=== PATIENT | male | born 1970 ===

== ENCOUNTER 2019-05-19 16:11 | Inpatient (IN) ==
[2019-05-19] MEDS ORDERED: 0.9 % Sodium Chloride 1,000 ML IVC ONE (16:39)
[2019-05-19] MEDS ORDERED: Morphine Sulfate 2 MG/ML SYRINGE IVP ONE (16:39)
--- NOTE | 2019-05-19 16:39 | Emergency Department Note ---
Disposition Clinical Impression: Infected hand Disposition: Admitted As Inpatient Condition: Fair Time of Disposition: 18:22 Extremity Problem HPI - General Chief complaint: ED Extremity Problem,Nontraumatic Stated complaint: Left hand infection, Failed otpt abx Time Seen by Provider: 05/19/19 16:27 Source: patient Limitations: no limitations Nursing Notes Reviewed: Yes Vital Signs Reviewed: Yes - History of Present Illness HPI Narrative: 48-year-old male presents emergency department with concern for left hand swelling. Patient jabbed it with a screwdriver. Reports that this is over 1 month ago. He stated that he is treated outpatient for infection. Things are worse now there is drainage coming out of his hand. Just some redness that is popped up as well. Patient denies any fevers, chills. He states he is up-to-date on his tetanus shot. He is able to move his hand throughout. He just concern is more swollen and red with the drainage. Pain Scale: 7 - Related Data Home Medications Medication Instructions Recorded Confirmed Albuterol Sulfate [Proventil 2 puff IH Q4HR PRN 05/19/19 05/19/19 Inhaler] Levothyroxine [Synthroid] 25 mcg PO 0630 05/19/19 05/19/19 Mometasone/Formoterol [Dulera 100 2 inh IH BID 05/19/19 05/19/19 Mcg/5 Mcg Inhaler] Tiotropium [Spiriva] 18 mcg IH 0700 05/19/19 05/19/19 hydroCHLOROthiazide 25 mg PO DAILY 05/19/19 05/19/19 [Hydrochlorothiazide] Previous Rx's Medication Instructions Recorded Clindamycin HCl 600 mg PO TID 8 Days #48 capsule 05/25/19 HYDROcodone/Acet 5/325 mg [[place] 1 tab PO Q6H PRN 3 Days #12 tab 05/25/19 5-325 mg] Lactobacillus [Culturelle] 1 each PO BID #14 cap.sprink 05/25/19 Sulfamethoxazole/Trimeth DS 1 each PO BID 8 Days #16 tablet 05/25/19 [Bactrim DS] Allergies Allergy/AdvReac Type Severity Reaction Status Date / Time steroids Allergy Rash Uncoded 09/06/18 17:27 All systems ED: reviewed and negative except as stated. Review of Systems: As Per HPI Constitutional: Denies: fever Cardiovascular: Denies: chest pain Respiratory: Denies: cough, dyspnea Gastrointestinal: Denies: abdominal pain, nausea, vomiting Musculoskeletal: Reports: other (Left hand swelling and injury with redness) Neurological: Denies: numbness, paresthesias Past Medical History - Past Medical History Attestation: Yes The following information was validated with the patient. Medical history: Reports: hypertension, thyroid disease - Social History Smoking Status: Never smoker Smokeless Tobacco Status: No Alcohol use: Reports: none Drug use: Reports: none Physical Exam - General Limitations: no limitations General appearance: alert, in no apparent distress - Head Head exam: normocephalic - Eye Eye exam: Present: EOMI - ENT ENT exam: mucous membranes moist - Neck Neck exam: Present: trachea midline - Chest Chest inspection: Present: symmetric chest wall rise - Respiratory Respiratory exam: Present: normal lung sounds bilaterally. Absent: respiratory distress, accessory muscle use - Cardiovascular Cardiovascular exam: Present: regular rate, normal rhythm, normal heart sounds - Abdominal Exam Abdominal exam: Present: soft, Non-Tender. Absent: distention, guarding, rebou nd, rigidity - Extremities Exam Extremities exam: Present: other (Left hand more swollen than right. There is serous drainage on the anterior aspect. There is a lot of swelling and there is some redness as well. Patient moves hand appropriately. Able to flex and extend. Neurovascular intact) Course Vital Signs Temperature 98.1 F 05/19/19 16:22 Pulse Rate 75 05/19/19 16:22 Respiratory Rate 18 05/19/19 16:22 Blood Pressure 146/75 05/19/19 16:22 O2 Sat by Pulse Oximetry 97 05/19/19 16:22 Temperature 98.3 F 05/19/19 23:35 Pulse Rate 76 05/19/19 23:35 Respiratory Rate 19 05/19/19 23:35 Blood Pressure 140/87 05/19/19 23:35 O2 Sat by Pulse Oximetry 99 05/19/19 23:35 Oxygen Delivery Oxygen Delivery Room Air Extremity Problem, Nontraumati - MDM Narrative Medical decision making narrative: [id number] male presents emergency department with concern for left hand infection. Patient neurovascular intact. X-ray does not reveal anything. Spoke with hand surgeon who stated to start patient on vancomycin and Zosyn. Also recommended CT. Admitted to hospitalist. - Lab Data Result diagrams: 05/24/19 05:04 05/24/19 05:04 Lab Results 05/19/19 05/19/19 05/19/19 Range/Units 16:43 16:43 16:43 WBC 9.4 (4.3-11.1) K/mcL RBC 4.79 (4.19-5.50) M/mcL Hgb 13.6 (12.9-16.9) g/dL Hct 41.1 (37.5-50.1) % MCV 85.8 (83.0-100.0) fL MCH 28.4 (28.0-33.3) pg MCHC 33.1 (31.6-35.5) g/dL RDW 13.2 (11.5-14.5) % Plt Count 350 (140-400) K/mcL MPV 10.3 (9.4-12.4) fL Immature Gran % 0.4 (0-4) % Seg Neutrophils % 59.0 % Lymphocytes % 26.5 % Monocytes % 8.5 % Eosinophils % 4.9 % Basophils % 0.7 % Neutrophils # 5.5 (1.6-8.9) K/mcL Lymphocytes # 2.5 (0.6-4.6) K/mcL Monocytes # 0.8 (0.0-1.3) K/mcL Eosinophils # 0.5 (0.0-0.6) K/mcL Basophils # 0.1 (0.0-0.2) K/mcL ESR (0-10) mm/hr Sodium 142 (136-145) mEq/L Potassium 3.9 (3.5-5.1) mEq/L Chloride 106 (98-107) mEq/L Carbon Dioxide 30 H (23-29) mEq/L BUN 15 (6-20) mg/dL Creatinine 1.28 (0.70-1.30) mg/dL Est GFR ( Amer) > 60 (> 60) Est GFR (Non-Af Amer) 60 (> 60) BUN/Creatinine Ratio 12 (6-26) Glucose 79 (70-105) mg/dL Calculated Osmolality 294 (280-300) Lactic Acid 1.2 (0.5-2.2) mmol/L Calcium 9.6 (8.6-10.3) mg/dL C-Reactive Protein < 5 (Less than 10) mg/L 05/19/19 Range/Units 16:54 WBC (4.3-11.1) K/mcL RBC (4.19-5.50) M/mcL Hgb (12.9-16.9) g/dL Hct (37.5-50.1) % MCV (83.0-100.0) fL MCH (28.0-33.3) pg MCHC (31.6-35.5) g/dL RDW (11.5-14.5) % Plt Count (140-400) K/mcL MPV (9.4-12.4) fL Immature Gran % (0-4) % Seg Neutrophils % % Lymphocytes % % Monocytes % % Eosinophils % % Basophils % % Neutrophils # (1.6-8.9) K/mcL Lymphocytes # (0.6-4.6) K/mcL Monocytes # (0.0-1.3) K/mcL Eosinophils # (0.0-0.6) K/mcL Basophils # (0.0-0.2) K/mcL ESR 11 H (0-10) mm/hr Sodium (136-145) mEq/L Potassium (3.5-5.1) mEq/L Chloride (98-107) mEq/L Carbon Dioxide (23-29) mEq/L BUN (6-20) mg/dL Creatinine (0.70-1.30) mg/dL Est GFR ( Amer) (> 60) Est GFR (Non-Af Amer) (> 60) BUN/Creatinine Ratio (6-26) Glucose (70-105) mg/dL Calculated Osmolality (280-300) Lactic Acid (0.5-2.2) mmol/L Calcium (8.6-10.3) mg/dL C-Reactive Protein (Less than 10) mg/L Attestation Statement - Attestation Attestation: I examined this patient and my medical decision-making was reviewed with the Resident Physician. I agree with the documented findings, disposition and treatment plan as described except to the extent set forth below. Patient has swelling of left hand on the dorsal aspect. NO fever, no neuro compromise. Do not see evidence of tendon infection. Patient however has been on antibiotics and seemingly failed outpatient management and will be admitted at this time in stable condition.
[2019-05-19 17:22] LABS: BUN/Creatinine Ratio 12 (6-26); Blood Urea Nitrogen 15 mg/dL (6-20); Calcium 9.6 mg/dL (8.6-10.3); Carbon Dioxide 30 mEq/L (23-29); Chloride 106 mEq/L (98-107); Glucose 79 mg/dL (70-105); Osmolality,Calculated 294 (280-300); Potassium 3.9 mEq/L (3.5-5.1); Sodium 142 mEq/L (136-145); eGFR For African Americans > 60 (> 60); eGFR For Non-African Americans 60 (> 60)
[2019-05-19 17:38] LABS: Basophils # 0.1 K/mcL (0.0-0.2); Basophils % 0.7 %; Eosinophils # 0.5 K/mcL (0.0-0.6); Eosinophils % 4.9 %; Hematocrit 41.1 % (37.5-50.1); Hemoglobin 13.6 g/dL (12.9-16.9); Immature Granulocytes % 0.4 % (0-4); Lymphocytes # 2.5 K/mcL (0.6-4.6); Lymphocytes % 26.5 %; Mean Corpuscular HGB Conc 33.1 g/dL (31.6-35.5); Mean Corpuscular Hemoglobin 28.4 pg (28.0-33.3); Mean Corpuscular Volume 85.8 fL (83.0-100.0); Mean Platelet Volume 10.3 fL (9.4-12.4); Monocytes # 0.8 K/mcL (0.0-1.3); Monocytes % 8.5 %; Neutrophils # 5.5 K/mcL (1.6-8.9); Platelet Count 350 K/mcL (140-400); Red Blood Count 4.79 M/mcL (4.19-5.50); Red Cell Distribution Width 13.2 % (11.5-14.5); White Blood Count 9.4 K/mcL (4.3-11.1)
[2019-05-19 17:52] LABS: C-Reactive Protein < 5 mg/L (Less than 10)
[2019-05-19] MEDS ORDERED: Clindamycin 600 MG/50 ML 600 MG/50 ML IV.SOLN IVPB STA (18:27)
[2019-05-19] MEDS ORDERED: Piperacillin/Tazobactam 3.375 GM in 0.9 % Sodium Chloride Mini Bag 100 ML IVPB ONE (18:27)
[2019-05-19] MEDS ORDERED: Isovue-370 500 ML BOTTLE IVP ONE (19:01)
--- NOTE | 2019-05-19 19:52 | Orthopedic Consult Note ---
Date of Encounter: 05/19/19 Time of Encounter: 19:49 Assessment and Plan (1) Hand abscess Current Visit: Yes Status: Acute I did have a long discussion with the patient regarding the diagnosis. He does have an abscess to the left hand after a screwdriver injury. It has been smoldering over the course of the last several weeks. Labs are benign. My r ecommendation is for incision, drainage, irrigation, debridement. He had just completed a large meal. Therefore my recommendation is to proceed with formal operative debridement and irrigation tomorrow. Nothing by mouth after midnight. History of Present Illness HPI: Mr. Welch is a 48 year old male who is currently admitted to the hospitalist. He sustained an injury to his left hand about 2 months ago when he drove a screwdriver throughout. He went to the ER at that point where he is managed with antibiotics. This did continue to swell and become more painful. He presented today for continued symptoms. I was asked to evaluate the patient. He complains of isolated pain to the dorsal aspect of the left hand along the radial aspect in the first dorsal webspace area which is achy. It is actual quite mild. It has not changed over the course of the last 2-3 weeks. No associated numbness, tingling, or any other associated signs or symptoms. No feelings of illness. No modifying factors. Past Med Surg Social Fam HX - Past Medical History Medical history: hypertension, thyroid disease - Social History Smoking Status: Never smoker Smokeless Tobacco Status: No Alcohol use: none Drug use: none Medications and Allergies Albuterol Sulfate [Proventil Inhaler] 2 puff IH Q4HR PRN 05/19/19 [History] Levothyroxine [Synthroid] 25 mcg PO 0630 05/19/19 [History] Mometasone/Formoterol [Dulera 100 Mcg/5 Mcg Inhaler] 2 inh IH BID 05/19/19 [History] Tiotropium [Spiriva] 18 mcg IH 0700 05/19/19 [History] hydroCHLOROthiazide [Hydrochlorothiazide] 25 mg PO DAILY 05/19/19 [History] Allergy/AdvReac Type Severity Reaction Status Date / Time steroids Allergy Rash Uncoded 09/06/18 17:27 All Systems Reviewed: Constitutional -The patient denies any fevers, chills, or feelings of illness Neurologic -The patient denies any numbness, tingling, or burning pains Physical Exam - Constitutional Vitals: Temp Pulse Resp BP Pulse Ox 98.1 F 75 18 161/116 99 05/19/19 16:22 05/19/19 19:12 05/19/19 19:12 05/19/19 19:12 05/19/19 19:12 CONSTITUTIONAL -Vitals reviewed -The patient is well developed, well nourished, well groomed PSYCHIATRIC -Fully alert and oriented -Pleasant mood LEFT UPPER EXTREMITY The skin and the soft tissue envelope are intact. Generalized swelling and fluctuance about the first dorsal compartment region with a healed puncture sites and the volar and dorsal first webspace area from the screwdriver. Minimal cellulitis about the index finger metacarpophalangeal joint area. Minimal tenderness to palpation throughout. Nearly full motion of the wrist and the digits. The patient can actively flex and extend all digits, extend the thumb, cross the index and long fingers, make an okay sign, and oppose the thumb. The fingertips are all grossly sensate and well-perfused, and the radial artery pulse is 2+. Diagnostic Imaging: I did personally review and interpret the CT scan of the left hand with contrast which shows a complex fluid collection representing an abscess. Results - Labs Result Diagrams: 05/19/19 16:43 05/19/19 16:43 Labs: Abnormal lab results ESR 11 mm/hr (0-10) H 05/19/19 16:54 Carbon Dioxide 30 mEq/L (23-29) H 05/19/19 16:43 H & H 05/19/19 Range/Units 16:43 Hgb 13.6 (12.9-16.9) g/dL Hct 41.1 (37.5-50.1) % All other labs normal. Consult Discharge Plan - Plan Referrals: NONE,PCP [Primary Care Provider] -
[2019-05-19] MEDS ORDERED: Naloxone 0.4 MG/ML INJ IVP PRN (23:14)
--- NOTE | 2019-05-20 00:32 | Internal Med History&Physical ---
Date of Encounter: 05/19/19 Time of Encounter: 20:30 Internal Medicine - H&P: HPI Chief complaint: Hand abscess Admitted From: Emergency Dept Plans for Post Hospital Care: Home History of present illness: Mr. Welch is a 48 year old male Patient presented to the emergency department after experiencing increasing pain in his left hand. A few weeks ago patient had been working outside on his car, and while using a screwdriver he apparently passed out. During this event a screwdriver that he had been holding went through the back of his hand from the base of his thumb to just above the wrist. At that time he did go to the [facility], was given oral antibiotics. Initially the swelling and pain improved but then gradually worsened. He was found to be having a reaction to his blood pressure medicine which had started just prior to this episode. He was then discontinued on that medicine and switched to a different one. He has not had any further syncopal episodes since then. Emergency department patient's initial vital signs were within normal limits CBC unremarkable BMP unremarkable ESR 11 CRP less than 5 Lactic acid 1.2 Hand x-ray showed soft tissue swelling of the hand but no osseous abnormality. There was no radiopaque foreign body. CT left hand: IMPRESSION: Extensive phlegmonous change involving the dorsal soft tissues at the level of the 2nd metacarpal as well as the thenar eminence musculature and soft tissues. This measures approximately 6 x 3 x 5 cm. There is developing abscess within the center of the phlegmon. In the emergency department orthopedic surgery was notified. Dr. Barker has evaluated the patient, and recommended incision and drainage as well as irrigation and debridement. Plan will be to proceed to the operating room in the morning. Patient was admitted to the hospital service for further management. Blood cultures were drawn, patient was started on vancomycin and Zosyn. Upon my evaluation, patient is resting comfortably in hospital bed in no acute distress. He denies chest pain, dull pain, nausea, vomiting, diarrhea and constipation. He agrees with the discussed plan. He denies significant past medical history, he does take levothyroxine for hypothyroidism and blood pressure medicines. He denies smoking, alcohol and other drugs. He denies significant family medical history. He is a full code. Past Med Surg Social Fam HX - Past Medical History Medical history: hypertension, thyroid disease - Social History Smoking Status: Never smoker Smokeless Tobacco Status: No Alcohol use: none Drug use: none - Family History Mother Hx Family Cancer: Yes (colon cancer) Internal Medicine - H&P: Meds Albuterol Sulfate [Proventil Inhaler] 2 puff IH Q4HR PRN 05/19/19 [History] Levothyroxine [Synthroid] 25 mcg PO 0630 05/19/19 [History] Mometasone/Formoterol [Dulera 100 Mcg/5 Mcg Inhaler] 2 inh IH BID 05/19/19 [History] Tiotropium [Spiriva] 18 mcg IH 0700 05/19/19 [History] hydroCHLOROthiazide [Hydrochlorothiazide] 25 mg PO DAILY 05/19/19 [History] Allergy/AdvReac Type Severity Reaction Status Date / Time steroids Allergy Rash Uncoded 09/06/18 17:27 All Systems PM: A 10-system review of systems was performed and is negative for pertinent findings except as documented above in the HPI. - Constitutional Vitals: Temp Pulse Resp BP Pulse Ox 98.3 F 76 19 140/87 99 05/19/19 23:35 05/19/19 23:35 05/19/19 23:35 05/19/19 23:35 05/19/19 23:35 General appearance: Present: cooperative, A&O X 3, pleasant, no acute distress, answers questions appropriately Exam: - - Head Head exam: Present: normal inspection - Eye Eye exam: Present: EOMI, normal appearance - Respiratory Respiratory exam: Present: CTAB. Absent: rales, respiratory distress, rhonchi, wheezes - Cardiovascular Cardiovascular exam: Present: RRR. Absent: diastolic murmur, systolic murmur - GI/Abdominal GI/Abdominal exam: Present: normal bowel sounds, soft. Absent: tenderness - Extremities Exam Extremities exam: Present: tenderness, warm, radial pulses palpable and symmetrical. Absent: calf tenderness, pedal edema Additional comments: Large left hand swelling at the base of the thumb dorsally. Healed wound at the webbing between the thumb and second finger with another wound in the back of the hand just distal to the wrist. Patient has sensation in all of his fingers, but decrease flexion of his second finger and thumb. Wrist flexion and extension normal. No pain proximal to the wrist - Neurological Exam Neurological exam: Present: no focal deficits, strengths equal and symetr throughout. Absent: motor sensory deficit, facial droop, speech deficit - Skin Skin exam: Present: dry, erythema, warm Additional comments: As described above patient's left hand is swollen and erythematous. Internal Med - H&P Results - Labs CBC & Chem 7: 05/19/19 16:43 05/19/19 16:43 Labs: Short CBC 05/19/19 Range/Units 16:43 WBC 9.4 (4.3-11.1) K/mcL Hgb 13.6 (12.9-16.9) g/dL Hct 41.1 (37.5-50.1) % Plt Count 350 (140-400) K/mcL Neutrophils # 5.5 (1.6-8.9) K/mcL BMP 05/19/19 16:43 Sodium 142 Potassium 3.9 Chloride 106 Carbon Dioxide 30 H BUN 15 Creatinine 1.28 Glucose 79 Calcium 9.6 - Impressions ITS Impressions Hand X-Ray 05/19/19 16:50 IMPRESSION: Soft tissue swelling of the hand. No acute osseous abnormality. No radiopaque foreign body. D/ / 05/19/2019 16:51:34 Jayla Mancia MD / [facility] Interpreting Provider: Jayla Mancia MD Hand CT 05/19/19 19:59 IMPRESSION: Extensive phlegmonous change involving the dorsal soft tissues at the level of the 2nd metacarpal as well as the thenar eminence musculature and soft tissues. This measures approximately 6 x 3 x 5 cm. There is developing abscess within the center of the phlegmon. D/ / 05/19/2019 20:10:23 Carlos Zarate MD / [email or web address] Interpreting Provider: Carlos Zarate MD - Assessment and Plan (1) Hand abscess Current Visit: Yes Status: Acute Assessment and plan: Secondary to screwdriver accident a few weeks ago. Evaluated by orthopedic surgery. Plan is to go the OR for incision and drainage in the morning. Nothing by mouth after midnight Continue IV antibiotics Follow-up blood cultures Follow-up further orthopedic surgery recommendations (2) Hypothyroidism Current Visit: Yes Status: Acute Assessment and plan: Continue home meds at discharge Qualifiers: Hypothyroidism type: unspecified Qualified Code(s): E03.9 - Hypothyroidism, unspecified (3) DVT prophylaxis Current Visit: Yes Status: Acute Assessment and plan: SCDs - Time Spent With Patient Total time spent is greater than 50% in coordination of care (as documented) at patient's floor/unit and/or counseling patient: Greater than 35 minutes
[2019-05-20] MEDS: Piperacillin/Tazobactam 3.375 GM in 0.9 % Sodium Chloride Mini Bag 100 ML IVPB SCH ×4 (00:57→23:43)
[2019-05-20 06:42] LABS: Hematocrit 39.6 % (37.5-50.1); Mean Corpuscular HGB Conc 32.8 g/dL (31.6-35.5); Mean Corpuscular Hemoglobin 28.1 pg (28.0-33.3); Mean Corpuscular Volume 85.5 fL (83.0-100.0); Platelet Count 306 K/mcL (140-400); Red Blood Count 4.63 M/mcL (4.19-5.50); Red Cell Distribution Width 13.2 % (11.5-14.5); White Blood Count 7.9 K/mcL (4.3-11.1)
[2019-05-20 06:53] LABS: INR 0.9; Prothrombin Time 10.5 Seconds (9.4-12.1)
[2019-05-20 06:56] LABS: Activated Partial Thrombo Time 32.4 Seconds (26.0-36.0)
[2019-05-20 07:06] LABS: BUN/Creatinine Ratio 10 (6-26); Blood Urea Nitrogen 11 mg/dL (6-20); Calcium 8.9 mg/dL (8.6-10.3); Carbon Dioxide 26 mEq/L (23-29); Chloride 104 mEq/L (98-107); Glucose 91 mg/dL (70-105); Osmolality,Calculated 291 (280-300); Potassium 3.8 mEq/L (3.5-5.1); Sodium 141 mEq/L (136-145); eGFR For African Americans > 60 (> 60); eGFR For Non-African Americans > 60 (> 60)
--- NOTE | 2019-05-20 07:46 | Orthopedics Progress Note ---
Date of Encounter: 05/20/19 Time of Encounter: 07:45 - Assessment and Plan (1) Hand abscess Current Visit: Yes Status: Acute Subjective Interval history: S: Patient is seen today and has no complaints. O: Afebrile and vital signs are stable Left hand swelling and fluctuance consistent with his known abscess. Neurovascularly intact distally A: Left hand abscess P: My recommendation is to proceed with formal incision, drainage, irrigation, debridement of the left hand. He is on the schedule for today.The risks discussed included but were not limited to stiffness, bleeding, infection, blood clots, damage to neurovascular structures, tendons, ligaments, and bone. Also discussed was the risk of continued symptoms and possible need for further procedures. I did discuss the anesthesia risks including stroke, heart attack, and . I did discuss the reasonable, foreseeable postoperative course with the patient. The patient did wish to proceed and consent was obtained. Objective Vital signs: Vital Signs Temp Pulse Resp BP Pulse Ox 05/20/19 06:35 97.6 F 54 16 142/84 99 05/20/19 04:12 97.6 F 64 18 142/83 96 05/19/19 23:35 98.3 F 76 19 140/87 99 05/19/19 19:59 20 148/105 05/19/19 19:12 75 18 161/116 99 05/19/19 18:13 77 18 167/108 99 05/19/19 17:49 79 16 146/104 99 05/19/19 16:22 98.1 F 75 18 146/75 97 Intake and Output 05/19/19 05/19/19 05/20/19 15:59 23:59 07:59 Intake Total 1050 / 1050 0 / 0 Balance 1050 / 1050 0 / 0 Intake: IV Fluids 1050 / 1050 0.9 % Sodium Chloride 1,000 ML 1000 / 1000 @ Wide Open IVC .Q0M ONE Rx#: [id number] Cleocin Premix 600 MG/50 ML 600 50 / 50 mg In 50 ml @ 50 mls/hr IVPB NOW STA Rx#:[id number] Oral 0 / 0 Other: # Voids 1 Weight 86.183 kg - Labs CBC & BMP: 05/20/19 06:16 05/20/19 06:16 Labs: Abnormal lab results ESR 11 mm/hr (0-10) H 05/19/19 16:54 Carbon Dioxide 30 mEq/L (23-29) H 05/19/19 16:43 Consult Discharge Plan - Plan Referrals: NONE,PCP [Primary Care Provider] -
--- NOTE | 2019-05-20 08:13 | Internal Med Progress Note ---
<Marcial Moore - Last Filed: 05/20/19 11:42> Hospitalist Progress Note - Encounter Date of Encounter: 05/20/19 Time of Encounter: 08:13 - Subjective Interval History: Patient is awake, alert, comfortable in bed with significant other. No acute changes overnight. Reports feeling well overall, still having some mild-moderate discomfort in the left hand although greatly improved. We discussed preop cardiac clearance and scheduled surgery today. He had no questions at this time. Denies fever, chills, n/v, sob, cp. - Exam Vitals: Temp Pulse Resp BP Pulse Ox 97.6 F 54 16 142/84 99 05/20/19 06:35 05/20/19 06:35 05/20/19 06:35 05/20/19 06:35 05/20/19 06:35 Exam: General appearance: Present: cooperative, A&O X 3, pleasant, no acute distress, answers questions appropriately Head: normal inspection, atraumatic, normocephalic. Eye: EOMI, conjunctiva wnl. Lungs: CTAB. No rales, rhonchi, wheezes Cardiovascular: RRR. S1/S2 WNL. No murmurs, rubs, gallops. GI: Soft, nontender, normal bowel sounds Extremities: Left hand swelling, tenderness, warmth, erythema at the base of the thumb. Decreased ROM of thumb and pointer finger on the left. No calf tenderness, pedal edema Neurological: no focal deficits, CN grossly intact. Skin: dry, erythema, warm - Assessment and Plan (1) Hand abscess Current Visit: Yes Status: Acute Assessment and Plan: Patient with a left hand abcess secondary to screwdriver accident. He has been evaluated by orthopedic surgery who recs I&D, debridement, irrigation. Patient is able to climb a flight of stairs and walk long distances w/o developing sob, cp. No history of CVD. - RCRI score is 0. Pre-op EKG w/o ST changes, ischemia. - Continue IV Zosyn, Vancomycin. - NPO - Blood cultures pending. - Plan for I&D today. (2) Hypertension Current Visit: Yes Status: Chronic Assessment and Plan: Patient with a PMHx of hypertension. On HCTZ at home. BP on admission max to 167/108 which improved with pain control. BP now averaging 140/80s. Last BP 120/75. Patient is asymptomatic. - Continue to monitor. - Continue home HCTZ tomorrow. - F/U with pcp at discharge. (3) Hypothyroidism Current Visit: Yes Status: Chronic Assessment and Plan: Patient with history of hypothyroidism, currently asymptomatic. - Preop TSH ordered. - Continue home Synthroid. (4) Asthma Current Visit: Yes Status: Chronic Assessment and Plan: Patient with a reported history of asthma/COPD. Asymptomatic at this time. - Continue home Dulera, spiriva. - Proventil PRN DVT Prophylaxis: SCDs - Time Spent with Patient Total time spent is greater than 50% in coordination of care (as documented) at patient's floor/unit and/or counseling patient: Plan of Care Discussed with: patient Internal Medicine: Result - Labs CBC & Chem 7: 05/20/19 06:16 05/20/19 06:16 Labs: Short CBC 05/19/19 05/20/19 Range/Units 16:43 06:16 WBC 9.4 7.9 (4.3-11.1) K/mcL Hgb 13.6 13.0 (12.9-16.9) g/dL Hct 41.1 39.6 (37.5-50.1) % Plt Count 350 306 (140-400) K/mcL Neutrophils # 5.5 (1.6-8.9) K/mcL BMP 05/19/19 05/20/19 16:43 06:16 Sodium 142 141 Potassium 3.9 3.8 Chloride 106 104 Carbon Dioxide 30 H 26 BUN 15 11 Creatinine 1.28 1.09 Glucose 79 91 Calcium 9.6 8.9 - ABG Interpretation ABG results: PT/INR, D-dimer PT 10.5 Seconds (9.4-12.1) 05/20/19 06:16 - Impressions Impressions Hand X-Ray 05/19/19 16:50 IMPRESSION: Soft tissue swelling of the hand. No acute osseous abnormality. No radiopaque foreign body. D/ /19/2019 16:51:34 Jayla Mancia MD / [facility] Interpreting Provider: Jayla Mancia MD Hand CT 05/19/19 19:59 IMPRESSION: Extensive phlegmonous change involving the dorsal soft tissues at the level of the 2nd metacarpal as well as the thenar eminence musculature and soft tissues. This measures approximately 6 x 3 x 5 cm. There is developing abscess within the center of the phlegmon. D/ / 05/19/2019 20:10:23 Carlos Zarate MD / [facility] Interpreting Provider: Carlos Zarate MD Consult Discharge Plan - Plan Referrals: NONE,PCP [Primary Care Provider] - <Sangita Sullivan - Last Filed: 05/20/19 13:15> Hospitalist Progress Note - Encounter Date of Encounter: 05/20/19 - Exam Vitals: Temp Pulse Resp BP Pulse Ox 97.7 F 95 16 120/75 94 05/20/19 10:06 05/20/19 10:06 05/20/19 10:06 05/20/19 10:06 05/20/19 10:06 - Assessment and Plan (1) Hand abscess Current Visit: Yes Status: Acute (2) Hypothyroidism Current Visit: Yes Status: Chronic (3) DVT prophylaxis Current Visit: Yes Status: Acute - Time Spent with Patient Total time spent is greater than 50% in coordination of care (as documented) at patient's floor/unit and/or counseling patient: Internal Medicine: Result - Labs CBC & Chem 7: 05/20/19 06:16 05/20/19 06:16 Labs: Short CBC 05/19/19 05/20/19 Range/Units 16:43 06:16 WBC 9.4 7.9 (4.3-11.1) K/mcL Hgb 13.6 13.0 (12.9-16.9) g/dL Hct 41.1 39.6 (37.5-50.1) % Plt Count 350 306 (140-400) K/mcL Neutrophils # 5.5 (1.6-8.9) K/mcL BMP 05/19/19 05/20/19 16:43 06:16 Sodium 142 141 Potassium 3.9 3.8 Chloride 106 104 Carbon Dioxide 30 H 26 BUN 15 11 Creatinine 1.28 1.09 Glucose 79 91 Calcium 9.6 8.9 - ABG Interpretation ABG results: PT/INR, D-dimer PT 10.5 Seconds (9.4-12.1) 05/20/19 06:16 - Impressions Impressions Hand X-Ray 05/19/19 16:50 IMPRESSION: Soft tissue swelling of the hand. No acute osseous abnormality. No radiopaque foreign body. D/ 05/19/2019 16:51:34 Jayla Mancia MD / [facility] Interpreting Provider: Jayla Mancia MD Hand CT 05/19/19 19:59 IMPRESSION: Extensive phlegmonous change involving the dorsal soft tissues at the level of the 2nd metacarpal as well as the thenar eminence musculature and soft tissues. This measures approximately 6 x 3 x 5 cm. There is developing abscess within the center of the phlegmon. D/ / 05/19/2019 20:10:23 Carlos Zarate MD / [facility] Interpreting Provider: Carlos Zarate MD - Attending Attestation I examined this patient and my medical decision-making was reviewed with the Resident Physician Dr Moore. I agree with the documented findings, disposition and treatment plan as described except to the extent set forth below. Mr Welch is being observed for hand abscess and cellulitis requiring surgical intervention awake, no fevers or chills, + hand pain, edema and impaired rom. no cp or sob at home with rest or exertion gen- alert, awake,appears stated age cv- reg rate and rhythm, normal s1,s2, no murmurs appreciated, radial pulse 2+, warm hands lungs- ctabl skin- left hand with significant erythema and warmth, large area induration neuro- AAOx3 Hand Abscess/Cellulitis- ortho taking for I&D today, cont Vanc + zosyn, await intraop cxs HTN- cont home med further dx and plan as noted by resident <Marcial Moore M - Last Filed: 05/20/19 11:42> (2) Hypertension Qualifiers: Hypertension type: essential hypertension Qualified Code(s): I10 - Essential (primary) hypertension (3) Hypothyroidism Qualifiers: Hypothyroidism type: unspecified Qualified Code(s): E03.9 - Hypothyroidism, unspecified (4) Asthma Qualifiers: Asthma severity: moderate Asthma complication type: uncomplicated <Sangita Sullivan M - Last Filed: 05/20/19 13:15> (2) Hypothyroidism Qualifiers: Hypothyroidism type: unspecified Qualified Code(s): E03.9 - Hypothyroidism, unspecified
[2019-05-20] MEDS ORDERED: Levothyroxine 25 MCG TABLET PO SCH (10:34)
[2019-05-20] MEDS ORDERED: *HR* Promethazine 25 MG/ML VIAL IVP PRN ×2 (15:48→19:31)
[2019-05-20] MEDS ORDERED: Ondansetron 4 MG/2 ML VIAL IVP ONE ×2 (15:48→19:31)
[2019-05-20] MEDS ORDERED: *HR* OxyCODONE Immed Rel 5 MG TABLET PO PRN (15:48)
--- NOTE | 2019-05-20 15:50 | Anesthesia Evaluation PreOp ---
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 Significant HX Other Medical History: Thyroid (Hypo) Anesthesia History: No Prior Anesthetic Complications, Past Anesthesia (None) Alcohol Use: none Drug use: none Medications and Allergies Albuterol Sulfate [Proventil Inhaler] 2 puff IH Q4HR PRN 05/19/19 [History] Levothyroxine [Synthroid] 25 mcg PO 0630 05/19/19 [History] Mometasone/Formoterol [Dulera 100 Mcg/5 Mcg Inhaler] 2 inh IH BID 05/19/19 [History] Tiotropium [Spiriva] 18 mcg IH 0700 05/19/19 [History] hydroCHLOROthiazide [Hydrochlorothiazide] 25 mg PO DAILY 05/19/19 [History] Allergy/AdvReac Type Severity Reaction Status Date / Time steroids Allergy Rash Uncoded 09/06/18 17:27 - Meds/Allergy Pre-op Review Medications Reviewed: Yes Allergies Reviewed: Yes Beta Blockers on Current Med List: No Anesthesia Results - Labs 05/20/19 06:16 05/20/19 06:16 Anesthesia Exam Vital Signs/O2 Sat, Most Current Temp Pulse Resp BP Pulse Ox 97.9 F 56 14 115/74 95 05/20/19 14:38 05/20/19 14:38 05/20/19 14:38 05/20/19 14:38 05/20/19 14:38 NPO (# of Hours): > 8 hrs Pain Scale: 0 Pain Scale Used: Numeric (1 - 10) - HEENT Pupil (Motor): Pupils equal, EOMI Mallampati: I Oral Opening: Greater than 3 - WELDING EQUIPMENT REPAIRER SUPERVISOR LOC: Oriented WELDING EQUIPMENT REPAIRER SUPERVISOR Motor: Normal RUE, Normal LUE, Normal RLE, Normal LLE, Normal Face WELDING EQUIPMENT REPAIRER SUPERVISOR Sensory: Normal: RUE, LUE, RLE, LLE, Face - Cardiac Rhythm: Regular Murmur: None JVD: No Carotid Bruit: No - Pulmonary Breath Sounds: bilateral Clear Respiratory Effort: Symmetrical Anesthesia Assess/Plan ASA Score: 2 Level of consciousness: Cooperative Anesthetic Plan: General Autologous Blood: Yes Monitoring Plan: Standard Monitors Recovery Plan: PACU
[2019-05-20] MEDS ORDERED: *HR* Midazolam HCl 2 MG/2 ML VIAL ONE ×2 (15:51→16:54)
[2019-05-20] MEDS ORDERED: Dexamethasone 4 MG/ML VIAL ONE (15:51)
[2019-05-20] MEDS ORDERED: *HR* FentaNYL (PF) 100 MCG/2 ML VIAL ONE (15:51)
[2019-05-20] MEDS ORDERED: Lidocaine -MPF 2% 2 ML VIAL ONE (15:51)
[2019-05-20] MEDS ORDERED: *HR* Propofol 200 MG/20 ML VIAL IVP ONE (15:51)
[2019-05-20] MEDS ORDERED: Ondansetron 4 MG/2 ML VIAL ONE (15:51)
[2019-05-20] MEDS ORDERED: Bupivacaine/EPI 1:200k 0.5%PF 10 ML VIAL ONE (16:28)
[2019-05-20] MEDS ORDERED: *HR* PHENYLEPHRINE 1,000 MCG/10 ML SYRINGE IVP ONE (17:37)
[2019-05-20] MEDS ORDERED: Ketorolac 30 MG/ML VIAL ONE (17:45)
--- NOTE | 2019-05-20 17:58 | Orthopedic Operative Note ---
Date of procedure: 05/20/19 Procedure: OPERATIVE REPORT SURGEON: Moose Barker MD PREOPERATIVE DIAGNOSIS: Left hand infection POSTOPERATIVE DIAGNOSIS: Left hand infection involving the first dorsal webspace tracking into the volar webspace. PROCEDURE: Incision, drainage, irrigation, debridement of the left hand abscess ANESTHESIA: Gen. anesthesia SPECIMENS: Swabbed obtained for aerobic and anaerobic specimens. PREOPERATIVE NOTE The surgical plan was reviewed with the patient. The risks, benefits, alternatives, and potential complications of this procedure were discussed with the patient including injury to veins, arteries, nerves, tendons, ligaments, and bone. Also discussed were the risks of infection, bleeding, pain, blood clots, the possible need for a blood transfusion, the possible need for further procedures, heart attack, stroke, and . Additional risks include persistent infection and the need for further debridements. All of this was explained in simple terms, and the patient verbalized understanding and wished to proceed. Consent was given to proceed with surgery. PROCEDURE: The patient was seen in the preoperative holding area where the identify and the consent were confirmed. The left hand was marked. Final questions were answered. The patient was brought back to the operating room and placed supine on the operating room table. A huddle was performed with the patient and all vital surgical team members confirming patient identity, the correct procedure, and the correct operative site. General anesthesia was administered. The operative extremity was prepped and draped in the usual sterile fashion. A surgical time out was performed immediately preceding the incision with all personnel in the operating room to confirm patient identity, the correct operative site and extremity, correct radiographic studies, availability of appropriate surgical equipment, and agreement on the planned procedure. The tourniquet was inflated without exsanguination. The plan initially was to make a small 1 cm incisions, one over each entry/exit site of the screwdriver one over the index dorsal metacarpophalangeal joint region. These were all made and the skin and subcutaneous tissue was spread with tenotomies, decompressing a moderate amount of purulent fluid which was cultured. Through these 3 incisions was felt to be a significant amount of necrotic tenosynovium therefore the need to further open these wounds was apparent. Therefore an extensile longitudinal incision centered over the index metacarpal was made, connecting the distal and proximal incisions made on the dorsum. A screwdriver entry point on the volar first dorsal webspace was extended proximally as well and the wound spread open. Again there was an extensive amount of necrotic tenosynovium which was sharply excised. The extensor tendons of the second, third, fourth dorsal compartments were intact and healthy in appearance. A screwdriver track which went from the volar webspace to the dorsal webspace was spread open and debrided using an abrasive sponge. The fascia over the thenar eminence was opened and the compartment spread open and there was no purulence in this area. A total of 6 L of saline was flushed through the hand and the wound beds were healthy in appearance. There is no further necrotic material or purulence. The wound was loosely closed dorsally and 3 [place] drains were placed, one in the dorsal webspace proximally, one in the dorsal space distally, and one in the volar webspace. A soft, sterile dressing was applied. The instrument, sponge, and needle counts were correct after wound closure. POST OPERATIVE PLAN: Follow-up cultures. Continue IV antibiotics under the direction of the hospitalist. Was there an escrow assistant present: No Estimated blood loss (cc): 1
[2019-05-20] MEDS: Morphine Sulfate 2 MG/ML SYRINGE IVP PRN ×2 (18:03→18:08)
[2019-05-20] MEDS: *HR* HYDROmorphone (PF) 1 MG/ML SYRINGE IVP PRN ×2 (18:20→18:30)
--- NOTE | 2019-05-20 18:42 | Anesthesia Evaluation Post Op ---
Date of Encounter: 05/20/19 Time of Encounter: 18:41 - Vital Signs Vital Signs: Vital Signs/O2 Sat, Most Current Temp Pulse Resp BP Pulse Ox 97.5 F L 51 14 125/93 100 05/20/19 18:25 05/20/19 18:35 05/20/19 18:35 05/20/19 18:35 05/20/19 18:35 - Lungs Lungs: Clear Ascult./Percussion - Airway Airway: Non-obstructed - Cardiovascular Regular Rate - Mental Status Mental Status: Alert & Oriented, Answers Appropriately - Pain Pain Scale: 3 Pain Scale used: Numeric (1 - 10) - Nausea Vomiting Nausea Vomiting: Not Present - Hydration Hydration: NPO - Discharge PostOp Status: Transfer Patient to floor (fully awake, VSS, no anesthetic complication)
[2019-05-20] MEDS ORDERED: Morphine Sulfate 2 MG/ML SYRINGE IVP PRN (19:31)
[2019-05-20] MEDS ORDERED: Naloxone 0.4 MG/ML INJ IVP PRN (19:31)
[2019-05-20] MEDS: Budesonide/Formoterol 80/4.5 1 PUFF INH IH SCH (20:47)
[2019-05-20] MEDS ORDERED: Budesonide/Formoterol 80/4.5 1 PUFF INH IH SCH (22:00)
[2019-05-21] MEDS ORDERED: Ibuprofen 800 MG TABLET PO ONE (01:13)
[2019-05-21] MEDS ORDERED: Ketorolac 15 MG/ML VIAL IVP ONE (01:18)
[2019-05-21] MEDS: Levothyroxine 25 MCG TABLET PO SCH (06:27)
[2019-05-21] MEDS ORDERED: Levothyroxine 25 MCG TABLET PO SCH (06:30)
[2019-05-21] MEDS ORDERED: Tiotropium 18 MCG inhalation IH SCH (07:00)
--- NOTE | 2019-05-21 07:34 | Orthopedics Progress Note ---
Date of Encounter: 05/21/19 Time of Encounter: 07:32 - Assessment and Plan (1) Hand abscess Current Visit: Yes Status: Acute Subjective Interval history: S: Patient is seen today and has no complaints. O: Afebrile and vital signs are stable Dressing taken down. Wounds with mild sanguinous drainage. Swelling significantly improved compared to yesterday No cellulitis Neurovascularly intact A: Post left hand I&D P: Continue IV antibiotics per the primary team Follow cultures We will pull [place] drains tomorrow Anticipate possible discharge tomorrow if continuing to improve clinically Objective Vital signs: Vital Signs Temp Pulse Resp BP Pulse Ox 05/21/19 06:56 97.9 F 57 17 108/68 96 05/21/19 04:04 97.6 F 71 20 120/75 98 05/20/19 22:43 97.6 F 71 20 126/84 99 05/20/19 20:47 17 96 05/20/19 20:40 98.4 F 72 16 124/78 96 05/20/19 19:40 98.4 F 66 16 123/80 97 05/20/19 19:10 97.4 F L 58 20 121/77 99 05/20/19 18:45 97.6 F 53 14 125/92 98 05/20/19 18:35 51 14 125/93 100 05/20/19 18:25 97.5 F L 59 14 130/92 100 05/20/19 18:15 55 12 140/100 99 05/20/19 18:05 61 12 139/93 100 05/20/19 17:55 97.4 F L 62 18 131/92 98 05/20/19 14:38 97.9 F 56 14 115/74 95 05/20/19 10:06 97.7 F 95 16 120/75 94 Intake and Output 05/20/19 05/20/19 05/21/19 15:59 23:59 07:59 Intake Total 450 / 1200 650 / 1200 650 / 650 Output Total 1250 / 1251 1 / 1251 Balance -800 / -51 649 / -51 650 / 650 Intake: IV Fluids 350 / 450 Zosyn 3.375 GM In 0.9 % Sodium 100 / 200 Chloride (Mini-Bag +) 100 ML @ 25 mls/hr IVPB Q8HR [facility] Rx#: [id number] Vancocin 1,250 MG In 0.9 % 250 / 250 Sodium Chloride 250 ML @ 167 mls/hr IVPB Q12H [facility] Rx#: [id number] Oral 100 / 750 650 / 750 650 / 650 Output: Urine 1250 / 1250 Estimated Blood Loss Other: Meal Lunch NPO Dinner Percent of Meal Consumed 20% 0% # Voids 1 1 - Labs CBC & BMP: 05/20/19 06:16 05/20/19 06:16 Labs: Abnormal lab results ESR 11 mm/hr (0-10) H 05/19/19 16:54 Carbon Dioxide 30 mEq/L (23-29) H 05/19/19 16:43 TSH 6.967 mcIU/mL (0.340-5.600) H 05/20/19 09:46 Consult Discharge Plan - Plan Additional Instructions: DISCHARGE INSTRUCTIONS Dr. Barker DISCHARGE DIAGNOSIS/PROCEDURE I&D of the left hand ACTIVITY: Avoid aggressive activities with arm in which you were operated. Okay to move your fingers which will be good exercise. WOUND CARE: Change the dressing daily, clean wounds with warm soapy water, rinse clean and rewrap. MEDICATIONS: Oral antibiotic as per the hospitalist's instructions FOLLOW-UP Follow-up with Dr. Barker or Anamaria Faith PA-C at the office 1 week from the surgery date for a post operative evaluation. Call the office at [phone] to schedule or confirm your appointment. WHEN TO CALL THE DOCTOR OR WHEN TO SEEK CARE BEFORE YOUR APPOINTMENT 1. Excess swelling or increased numbness not made better by elevating the hand and moving the fingers. 2. Uncontrolled pain. 3. A color change in your hand or fingers. 4. Worsening redness or drainage. 5. Fevers over 100.5 degrees F or 38.1 degrees C. 6. Any symptoms that bring concern to you. Referrals: NONE,PCP [Primary Care Provider] -
[2019-05-21] MEDS: Budesonide/Formoterol 80/4.5 1 PUFF INH IH SCH ×2 (07:54→22:54)
[2019-05-21] MEDS: Tiotropium 18 MCG inhalation IH SCH (07:56)
--- NOTE | 2019-05-21 08:29 | Internal Med Progress Note ---
<Marcial Moore - Last Filed: 05/21/19 13:10> Hospitalist Progress Note - Encounter Date of Encounter: 05/21/19 Time of Encounter: 08:29 - Subjective Interval History: Patient awake, alert, in bed comfortably with significant other. No acute events overnight. Reports some mild to moderate pain of the left hand. Denies need of additional pain medication. Left hand is bandaged. He denies fever, chills, cp, sob, ap, n/v. We discussed the plan per surgery to remove drain tubes tomorrow and hopeful discharge on PO antibiotics. He had no quesions and agreed with plan. - Exam Vitals: Temp Pulse Resp BP Pulse Ox 97.9 F 57 17 108/68 96 05/21/19 06:56 05/21/19 06:56 05/21/19 07:58 05/21/19 06:56 05/21/19 07:58 Exam: General appearance: A&O X 3, pleasant, no acute distress Head: normal inspection, atraumatic, normocephalic. Eye: EOMI, conjunctiva wnl. Lungs: CTAB. No rales, rhonchi, wheezes Cardiovascular: RRR. S1/S2 WNL. No murmurs, rubs, gallops. GI: Soft, nontender, normal bowel sounds Extremities: Left hand wrapped in guaze and amy bandage. Drain tube recently removed by surgery. Some small areas of blood noted on distal guaze but otherwise dry and intact. No calf tenderness, pedal edema Neurological: no focal deficits, CN grossly intact. Skin: dry, warm - Assessment and Plan (1) Hand abscess Current Visit: Yes Status: Acute Assessment and Plan: Patient with a left hand abcess secondary to screwdriver accident. S/P operative I&D with wound debridement. Surgery w/o complications. [place] drains in place and wound re-dressed this morning. - Continue IV Zosyn, Vancomycin. - Advance diet to regular. - Blood, wound cultures pending. - Plan to remove mojgan drains tomorrow per surgery with anticipated discharge. - Tailor Abx at discharge. (2) Hypertension Current Visit: Yes Status: Chronic Assessment and Plan: Patient with a PMHx of hypertension. BP on admission max to 167/108 which improved with pain control. BP now averaging 120/70s on home HCTZ. Patient is asymptomatic. - Continue to monitor. - Continue home HCTZ. - F/U with pcp at discharge. (3) Hypothyroidism Current Visit: Yes Status: Chronic Assessment and Plan: Patient with history of hypothyroidism, currently asymptomatic. - TSH at 6.967 yesterday. - Continue home Synthroid. - F/U with PCP at discharge. (4) Asthma Current Visit: Yes Status: Chronic Assessment and Plan: Patient with a reported history of asthma/COPD. Asymptomatic at this time. - Continue home Dulera, spiriva. - Proventil PRN DVT Prophylaxis: SCDs - Time Spent with Patient Total time spent is greater than 50% in coordination of care (as documented) at patient's floor/unit and/or counseling patient: Plan of Care Discussed with: patient Internal Medicine: Result - Labs CBC & Chem 7: 05/21/19 09:11 05/21/19 09:11 - ABG Interpretation ABG results: PT/INR, D-dimer PT 10.5 Seconds (9.4-12.1) 05/20/19 06:16 - Impressions Impressions Hand CT 05/19/19 19:59 IMPRESSION: Extensive phlegmonous change involving the dorsal soft tissues at the level of the 2nd metacarpal as well as the thenar eminence musculature and soft tissues. This measures approximately 6 x 3 x 5 cm. There is developing abscess within the center of the phlegmon. D/ 05/19/2019 20:10:23 Carlos Zarate MD / [facility] Interpreting Provider: Carlos Zarate MD Consult Discharge Plan - Plan Additional Instructions: DISCHARGE INSTRUCTIONS Dr. Barker DISCHARGE DIAGNOSIS/PROCEDURE I&D of the left hand ACTIVITY: Avoid aggressive activities with arm in which you were operated. Okay to move your fingers which will be good exercise. WOUND CARE: Change the dressing daily, clean wounds with warm soapy water, rinse clean and rewrap. MEDICATIONS: Oral antibiotic as per the hospitalist's instructions FOLLOW-UP Follow-up with Dr. Barker or Anamaria Faith PA-C at the office 1 week from the surgery date for a post operative evaluation. Call the office at [phone] to schedule or confirm your appointment. WHEN TO CALL THE DOCTOR OR WHEN TO SEEK CARE BEFORE YOUR APPOINTMENT 1. Excess swelling or increased numbness not made better by elevating the hand and moving the fingers. 2. Uncontrolled pain. 3. A color change in your hand or fingers. 4. Worsening redness or drainage. 5. Fevers over 100.5 degrees F or 38.1 degrees C. 6. Any symptoms that bring concern to you. Referrals: NONE,PCP [Primary Care Provider] - <Sangita Sullivan - Last Filed: 05/21/19 14:14> Hospitalist Progress Note - Encounter Date of Encounter: 05/21/19 - Exam Vitals: Temp Pulse Resp BP Pulse Ox 97.6 F 73 16 128/83 97 05/21/19 12:04 05/21/19 12:04 05/21/19 12:04 05/21/19 12:04 05/21/19 12:04 - Assessment and Plan (1) Hand abscess Current Visit: Yes Status: Acute (2) Hypothyroidism Current Visit: Yes Status: Chronic (3) DVT prophylaxis Current Visit: Yes Status: Acute - Time Spent with Patient Total time spent is greater than 50% in coordination of care (as documented) at patient's floor/unit and/or counseling patient: Internal Medicine: Result - Labs CBC & Chem 7: 05/21/19 09:11 05/21/19 09:11 Labs: Short CBC 05/21/19 Range/Units 09:11 WBC 8.0 (4.3-11.1) K/mcL Hgb 13.5 (12.9-16.9) g/dL Hct 41.5 (37.5-50.1) % Plt Count 306 (140-400) K/mcL Neutrophils # 5.4 (1.6-8.9) K/mcL BMP 05/21/19 09:11 Sodium 139 Potassium 3.7 Chloride 102 Carbon Dioxide 28 BUN 11 Creatinine 1.22 Glucose 111 H Calcium 8.7 - ABG Interpretation ABG results: PT/INR, D-dimer PT 10.5 Seconds (9.4-12.1) 05/20/19 06:16 - Attending Attestation I examined this patient and my medical decision-making was reviewed with the Resident Physician Dr Moore. I agree with the documented findings, disposition and treatment plan as described except to the extent set forth below. Mr Welch is being observed for hand abscess and cellulitis requiring surgical intervention awake, no fevers or chills, pain tolerable gen- alert, awake,appears stated age cv- reg rate and rhythm, normal s1,s2 lungs- ctabl skin- left hand dressing intact with dried blood near thumb neuro- AAOx3 Hand Abscess/Cellulitis- cont Vanc + zosyn, await intraop cxs HTN- cont home med further dx and plan as noted by resident <Marcial Moore M - Last Filed: 05/21/19 13:10> (2) Hypertension Qualifiers: Hypertension type: essential hypertension Qualified Code(s): I10 - Essential (primary) hypertension (3) Hypothyroidism Qualifiers: Hypothyroidism type: unspecified Qualified Code(s): E03.9 - Hypothyroidism, unspecified (4) Asthma Qualifiers: Asthma severity: moderate Asthma complication type: uncomplicated <Sangita Sullivan M - Last Filed: 05/21/19 14:14> (2) Hypothyroidism Qualifiers: Hypothyroidism type: unspecified Qualified Code(s): E03.9 - Hypothyroidism, unspecified
[2019-05-21] MEDS ORDERED: hydroCHLOROthiazide 25 MG TABLET PO SCH (09:00)
--- NOTE | 2019-05-21 09:00 | Electrocardiograph Report ---
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
[2019-05-21 09:25] LABS: Basophils % 0.4 %; Eosinophils # 0.4 K/mcL (0.0-0.6); Eosinophils % 4.9 %; Hematocrit 41.5 % (37.5-50.1); Hemoglobin 13.5 g/dL (12.9-16.9); Immature Granulocytes % 0.2 % (0-4); Lymphocytes # 1.7 K/mcL (0.6-4.6); Lymphocytes % 21.1 %; Mean Corpuscular HGB Conc 32.5 g/dL (31.6-35.5); Mean Corpuscular Hemoglobin 28.7 pg (28.0-33.3); Mean Corpuscular Volume 88.3 fL (83.0-100.0); Mean Platelet Volume 9.8 fL (9.4-12.4); Monocytes # 0.5 K/mcL (0.0-1.3); Monocytes % 6.6 %; Neutrophils # 5.4 K/mcL (1.6-8.9); Platelet Count 306 K/mcL (140-400); Red Cell Distribution Width 13.2 % (11.5-14.5); Segmented Neutrophils % 66.8 %
[2019-05-21 09:45] LABS: BUN/Creatinine Ratio 9 (6-26); Blood Urea Nitrogen 11 mg/dL (6-20); Calcium 8.7 mg/dL (8.6-10.3); Carbon Dioxide 28 mEq/L (23-29); Chloride 102 mEq/L (98-107); Glucose 111 mg/dL (70-105); Osmolality,Calculated 288 (280-300); Potassium 3.7 mEq/L (3.5-5.1); Sodium 139 mEq/L (136-145); eGFR For African Americans > 60 (> 60); eGFR For Non-African Americans > 60 (> 60)
[2019-05-21] MEDS: Piperacillin/Tazobactam 3.375 GM in 0.9 % Sodium Chloride Mini Bag 100 ML IVPB SCH ×2 (10:10→16:46)
[2019-05-21] MEDS: hydroCHLOROthiazide 25 MG TABLET PO SCH (10:12)
--- NOTE | 2019-05-21 18:53 | Orthopedics Progress Note ---
Date of Encounter: 05/21/19 Time of Encounter: 18:53 - Assessment and Plan (1) Hand abscess Current Visit: Yes Status: Acute Subjective Interval history: S: Patient is seen today and has no complaints. O: Afebrile and vital signs are stable Dressing taken down. Wounds with mild sanguinous drainage. Swelling significantly improved compared to yesterday No cellulitis Neurovascularly intact A: Post left hand I&D P: Continue IV antibiotics per the primary team Follow cultures We will pull [place] drains tomorrow Anticipate possible discharge tomorrow if continuing to improve clinically Objective Vital signs: Vital Signs Temp Pulse Resp BP Pulse Ox 05/21/19 16:27 98.2 F 69 16 158/88 99 05/21/19 12:04 97.6 F 73 16 128/83 97 05/21/19 07:58 17 96 05/21/19 06:56 97.9 F 57 17 108/68 96 05/21/19 04:04 97.6 F 71 20 120/75 98 05/20/19 22:43 97.6 F 71 20 126/84 99 05/20/19 20:47 17 96 05/20/19 20:40 98.4 F 72 16 124/78 96 05/20/19 19:40 98.4 F 66 16 123/80 97 05/20/19 19:10 97.4 F L 58 20 121/77 99 Intake and Output 05/21/19 05/21/19 05/21/19 07:59 15:59 23:59 Intake Total 750 / 1580 590 / 1580 240 / 1580 Balance 750 / 1580 590 / 1580 240 / 1580 Intake: IV Fluids 100 / 450 350 / 450 Zosyn 3.375 GM In 0.9 % Sodium 100 / 200 100 / 200 Chloride (Mini-Bag +) 100 ML @ 25 mls/hr IVPB Q8HR [facility] Rx#: [id number] Vancocin 1,250 MG In 0.9 % 250 / 250 Sodium Chloride 250 ML @ 167 mls/hr IVPB Q12H [facility] Rx#: [id number] Oral 650 / 1130 240 / 1130 240 / 1130 Other: Meal Breakfast Percent of Meal Consumed 100% # Voids 1 - Labs CBC & BMP: 05/21/19 09:11 05/21/19 09:11 Labs: Abnormal lab results ESR 11 mm/hr (0-10) H 05/19/19 16:54 Carbon Dioxide 30 mEq/L (23-29) H 05/19/19 16:43 Glucose 111 mg/dL (70-105) H 05/21/19 09:11 TSH 6.967 mcIU/mL (0.340-5.600) H 05/20/19 09:46 Consult Discharge Plan - Plan Additional Instructions: DISCHARGE INSTRUCTIONS Dr. Barker DISCHARGE DIAGNOSIS/PROCEDURE I&D of the left hand ACTIVITY: Avoid aggressive activities with arm in which you were operated. Okay to move your fingers which will be good exercise. WOUND CARE: Change the dressing daily, clean wounds with warm soapy water, rinse clean and rewrap. MEDICATIONS: Oral antibiotic as per the hospitalist's instructions FOLLOW-UP Follow-up with Dr. Barker or Anamaria Faith PA-C at the office 1 week from the surgery date for a post operative evaluation. Call the office at [phone] to schedule or confirm your appointment. WHEN TO CALL THE DOCTOR OR WHEN TO SEEK CARE BEFORE YOUR APPOINTMENT 1. Excess swelling or increased numbness not made better by elevating the hand and moving the fingers. 2. Uncontrolled pain. 3. A color change in your hand or fingers. 4. Worsening redness or drainage. 5. Fevers over 100.5 degrees F or 38.1 degrees C. 6. Any symptoms that bring concern to you. Referrals: NONE,PCP [Primary Care Provider] -
[2019-05-22] MEDS: Piperacillin/Tazobactam 3.375 GM in 0.9 % Sodium Chloride Mini Bag 100 ML IVPB SCH ×3 (00:27→16:31)
[2019-05-22] MEDS: Levothyroxine 25 MCG TABLET PO SCH (05:48)
[2019-05-22] MEDS: hydroCHLOROthiazide 25 MG TABLET PO SCH (07:42)
--- NOTE | 2019-05-22 08:41 | Internal Med Progress Note ---
Hospitalist Progress Note - Encounter Date of Encounter: 05/22/19 Time of Encounter: 10:10 - Subjective Interval History: awake, some throbbing pain in hand overnight since dressing change/drain removal, tolerable. no fevers, chills. Finger sensation intact. - Exam Vitals: Temp Pulse Resp BP Pulse Ox 98.5 F 67 15 133/93 97 05/22/19 07:52 05/22/19 07:52 05/22/19 07:52 05/22/19 07:52 05/22/19 07:52 Exam: gen- alert, awake,appears stated age cv- reg rate and rhythm, normal s1,s2, cap refill left hand intact, warm ext lungs- ctabl, normal resp effort on room air skin- left hand dressing intact msk- left hand finger rom intact neuro- AAOx3, sensation to light touch intact - Assessment and Plan (1) Hand abscess Current Visit: Yes Status: Acute - Summary of Assessment and Plan Summary of Assessment and Plan: Hand Abscess and Cellulitis, left s/p I&D w Wound Debridement, drain now removed -cont Vanc + Zosyn while await cxs to result so may transition to oral abx for dc -prn pain control Chronic Conditions: HTN- cont home hctz, fu with pcp on dc Asthma, stable Hypothyroidism- cont home inhalers vte ppx scds, ambulate Internal Medicine: Result - Labs CBC & Chem 7: 05/21/19 09:11 05/21/19 09:11 Labs: Short CBC 05/21/19 Range/Units 09:11 WBC 8.0 (4.3-11.1) K/mcL Hgb 13.5 (12.9-16.9) g/dL Hct 41.5 (37.5-50.1) % Plt Count 306 (140-400) K/mcL Neutrophils # 5.4 (1.6-8.9) K/mcL BMP 05/21/19 09:11 Sodium 139 Potassium 3.7 Chloride 102 Carbon Dioxide 28 BUN 11 Creatinine 1.22 Glucose 111 H Calcium 8.7 - ABG Interpretation ABG results: PT/INR, D-dimer PT 10.5 Seconds (9.4-12.1) 05/20/19 06:16 Consult Discharge Plan - Plan Additional Instructions: DISCHARGE INSTRUCTIONS Dr. Barker DISCHARGE DIAGNOSIS/PROCEDURE I&D of the left hand ACTIVITY: Avoid aggressive activities with arm in which you were operated. Okay to move your fingers which will be good exercise. WOUND CARE: Change the dressing daily, clean wounds with warm soapy water, rinse clean and rewrap. MEDICATIONS: Oral antibiotic as per the hospitalist's instructions FOLLOW-UP Follow-up with Dr. Barker or Anamaria Faith PA-C at the office 1 week from the surgery date for a post operative evaluation. Call the office at [phone] to schedule or confirm your appointment. WHEN TO CALL THE DOCTOR OR WHEN TO SEEK CARE BEFORE YOUR APPOINTMENT 1. Excess swelling or increased numbness not made better by elevating the hand and moving the fingers. 2. Uncontrolled pain. 3. A color change in your hand or fingers. 4. Worsening redness or drainage. 5. Fevers over 100.5 degrees F or 38.1 degrees C. 6. Any symptoms that bring concern to you. Referrals: NONE,PCP [Primary Care Provider] -
[2019-05-22] MEDS: Budesonide/Formoterol 80/4.5 1 PUFF INH IH SCH ×2 (09:51→19:48)
[2019-05-22] MEDS: Tiotropium 18 MCG inhalation IH SCH (09:53)
[2019-05-23] MEDS: Piperacillin/Tazobactam 3.375 GM in 0.9 % Sodium Chloride Mini Bag 100 ML IVPB SCH ×3 (00:35→16:14)
[2019-05-23] MEDS: Levothyroxine 25 MCG TABLET PO SCH (04:53)
--- NOTE | 2019-05-23 07:59 | Internal Med Progress Note ---
Hospitalist Progress Note - Encounter Date of Encounter: 05/23/19 Time of Encounter: 08:45 - Subjective Interval History: awake, cont to have throbbing pain in hand but tolerable now and overall improved from overnight. rom in tact, no fevers or chills. discussed w him i have spoken to micro lab and given timing of initial sample no update to micro will occur until later tonight. He understands and is agreeable to remaining inpt until cxs finalize. RN notified of cont pain and if no improvement to please update ortho team. - Exam Vitals: Temp Pulse Resp BP Pulse Ox 97.8 F 61 15 116/69 95 05/23/19 07:18 05/23/19 07:18 05/23/19 07:18 05/23/19 07:18 05/23/19 07:18 Exam: gen- alert, awake,appears stated age cv- reg rate and rhythm, normal s1,s2, cap refill left hand intact, warm ext lungs- ctabl, normal resp effort on room air skin- left hand dressing intact, clean and dry msk- left hand finger rom intact neuro- AAOx3, sensation to light touch intact - Assessment and Plan (1) Hand abscess Current Visit: Yes Status: Acute - Summary of Assessment and Plan Summary of Assessment and Plan: Hand Abscess and Cellulitis, left s/p I&D w Wound Debridement, drain now removed -cont Vanc + Zosyn while await cxs to result so may transition to oral abx for dc -prn pain control Chronic Conditions: HTN- cont home hctz, fu with pcp on dc Asthma, stable Hypothyroidism- cont home inhalers vte ppx scds, ambulate Internal Medicine: Result - Labs CBC & Chem 7: 05/21/19 09:11 05/21/19 09:11 - ABG Interpretation ABG results: PT/INR, D-dimer PT 10.5 Seconds (9.4-12.1) 05/20/19 06:16 Consult Discharge Plan - Plan Additional Instructions: DISCHARGE INSTRUCTIONS Dr. Barker DISCHARGE DIAGNOSIS/PROCEDURE I&D of the left hand ACTIVITY: Avoid aggressive activities with arm in which you were operated. Okay to move your fingers which will be good exercise. WOUND CARE: Change the dressing daily, clean wounds with warm soapy water, rinse clean and rewrap. MEDICATIONS: Oral antibiotic as per the hospitalist's instructions FOLLOW-UP Follow-up with Dr. Barker or Anamaria Faith PA-C at the office 1 week from the surgery date for a post operative evaluation. Call the office at [phone] to schedule or confirm your appointment. WHEN TO CALL THE DOCTOR OR WHEN TO SEEK CARE BEFORE YOUR APPOINTMENT 1. Excess swelling or increased numbness not made better by elevating the hand and moving the fingers. 2. Uncontrolled pain. 3. A color change in your hand or fingers. 4. Worsening redness or drainage. 5. Fevers over 100.5 degrees F or 38.1 degrees C. 6. Any symptoms that bring concern to you. Referrals: NONE,PCP [Primary Care Provider] -
[2019-05-23] MEDS: hydroCHLOROthiazide 25 MG TABLET PO SCH (08:13)
[2019-05-23] MEDS: Budesonide/Formoterol 80/4.5 1 PUFF INH IH SCH ×2 (11:04→20:03)
[2019-05-23] MEDS: Tiotropium 18 MCG inhalation IH SCH (11:07)
[2019-05-23] MEDS: Acetaminophen 325 MG TABLET PO PRN (16:21)
--- NOTE | 2019-05-23 21:05 | Orthopedics Progress Note ---
Date of Encounter: 05/22/19 Time of Encounter: 00:10 Subjective Principal diagnosis: Left hand infection Interval history: The patient is without complaints. Afebrile vital signs are stable. Dressing clean dry and intact. All dressings removed as well as 2 drains removed.. Neurovascularly intact with regard to bilateral upper extremities. Sensation intact all digits with brisk capillary refill. :stable. Plan mobilize ,continue analgesics, continue antibiotics, discharge planning. Dressing changed. Objective Vital signs: Vital Signs Temp Pulse Resp BP Pulse Ox 05/23/19 20:04 20 98 05/23/19 18:52 97.8 F 63 20 104/62 97 05/23/19 16:36 97.9 F 66 18 111/68 98 05/23/19 12:04 98.4 F 52 15 102/63 96 05/23/19 11:06 16 96 05/23/19 07:18 97.8 F 61 15 116/69 95 05/23/19 04:17 98.3 F 73 17 123/82 97 05/22/19 22:15 98.1 F 71 18 145/86 95 Intake and Output 05/23/19 05/23/19 05/23/19 07:59 15:59 23:59 Intake Total 2009 Output Total 0 / 0 Balance 2009 Intake: IV Fluids 100 / 550 350 / 550 100 / 550 Zosyn 3.375 GM In 0.9 % Sodium 100 / 300 100 / 300 100 / 300 Chloride (Mini-Bag +) 100 ML @ 25 mls/hr IVPB Q8HR [facility] Rx#: [id number] Vancocin 1,250 MG In 0.9 % 250 / 250 Sodium Chloride 250 ML @ 167 mls/hr IVPB Q12H [facility] Rx#: [id number] Oral 240 / 1460 740 / 1460 480 / 1460 Output: Urine 0 / 0 Other: Meal Breakfast Dinner Percent of Meal Consumed 100% 100% # Voids 2 2 Weight 87.2 kg Patient Weight 05/23/19 23:59 Weight 87.2 kg - Labs CBC & BMP: 05/21/19 09:11 05/21/19 09:11 Labs: Abnormal lab results ESR 11 mm/hr (0-10) H 05/19/19 16:54 Carbon Dioxide 30 mEq/L (23-29) H 05/19/19 16:43 Glucose 111 mg/dL (70-105) H 05/21/19 09:11 TSH 6.967 mcIU/mL (0.340-5.600) H 05/20/19 09:46 Vancomycin Trough 12 mcg/mL (5-10) H 05/22/19 20:24 Consult Discharge Plan - Plan Additional Instructions: DISCHARGE INSTRUCTIONS Dr. Barker DISCHARGE DIAGNOSIS/PROCEDURE I&D of the left hand ACTIVITY: Avoid aggressive activities with arm in which you were operated. Okay to move your fingers which will be good exercise. WOUND CARE: Change the dressing daily, clean wounds with warm soapy water, rinse clean and rewrap. MEDICATIONS: Oral antibiotic as per the hospitalist's instructions FOLLOW-UP Follow-up with Dr. Barker or Anamaria Faith PA-C at the office 1 week from the surgery date for a post operative evaluation. Call the office at [phone] to schedule or confirm your appointment. WHEN TO CALL THE DOCTOR OR WHEN TO SEEK CARE BEFORE YOUR APPOINTMENT 1. Excess swelling or increased numbness not made better by elevating the hand and moving the fingers. 2. Uncontrolled pain. 3. A color change in your hand or fingers. 4. Worsening redness or drainage. 5. Fevers over 100.5 degrees F or 38.1 degrees C. 6. Any symptoms that bring concern to you. Referrals: NONE,PCP [Primary Care Provider] -
--- NOTE | 2019-05-23 21:06 | Orthopedics Progress Note ---
Date of Encounter: 05/23/19 Time of Encounter: 21:05 Subjective Principal diagnosis: Left hand infection Interval history: The patient is without complaints. Afebrile vital signs are stable. Dressing clean dry and intact. Neurovascularly intact with regard to bilateral upper extremities. Sensation intact all digits with brisk capillary refill. :stable. Plan mobilize ,continue analgesics, continue antibiotics, discharge planning. Objective Vital signs: Vital Signs Temp Pulse Resp BP Pulse Ox 05/23/19 20:04 20 98 05/23/19 18:52 97.8 F 63 20 104/62 97 05/23/19 16:36 97.9 F 66 18 111/68 98 05/23/19 12:04 98.4 F 52 15 102/63 96 05/23/19 11:06 16 96 05/23/19 07:18 97.8 F 61 15 116/69 95 05/23/19 04:17 98.3 F 73 17 123/82 97 05/22/19 22:15 98.1 F 71 18 145/86 95 Intake and Output 05/23/19 05/23/19 05/23/19 07:59 15:59 23:59 Intake Total 340 2009 1092009 580 2009 Output Total 0 / 0 Balance 340 2009 580 2009 Intake: IV Fluids 100 / 550 350 / 550 100 / 550 Zosyn 3.375 GM In 0.9 % Sodium 100 / 300 100 / 300 100 / 300 Chloride (Mini-Bag +) 100 ML @ 25 mls/hr IVPB Q8HR [facility] Rx#: [id number] Vancocin 1,250 MG In 0.9 % 250 / 250 Sodium Chloride 250 ML @ 167 mls/hr IVPB Q12H [facility] Rx#: [id number] Oral 240 / 1460 740 / 1460 480 / 1460 Output: Urine 0 / 0 Other: Meal Breakfast Dinner Percent of Meal Consumed 100% 100% # Voids 2 2 Weight 87.2 kg Patient Weight 05/23/19 23:59 Weight 87.2 kg - Labs CBC & BMP: 05/21/19 09:11 05/21/19 09:11 Labs: Abnormal lab results ESR 11 mm/hr (0-10) H 05/19/19 16:54 Carbon Dioxide 30 mEq/L (23-29) H 05/19/19 16:43 Glucose 111 mg/dL (70-105) H 05/21/19 09:11 TSH 6.967 mcIU/mL (0.340-5.600) H 05/20/19 09:46 Vancomycin Trough 12 mcg/mL (5-10) H 05/22/19 20:24 Consult Discharge Plan - Plan Additional Instructions: DISCHARGE INSTRUCTIONS Dr. Barker DISCHARGE DIAGNOSIS/PROCEDURE I&D of the left hand ACTIVITY: Avoid aggressive activities with arm in which you were operated. Okay to move your fingers which will be good exercise. WOUND CARE: Change the dressing daily, clean wounds with warm soapy water, rinse clean and rewrap. MEDICATIONS: Oral antibiotic as per the hospitalist's instructions FOLLOW-UP Follow-up with Dr. Barker or Anamaria Faith PA-C at the office 1 week from the surgery date for a post operative evaluation. Call the office at [phone] to schedule or confirm your appointment. WHEN TO CALL THE DOCTOR OR WHEN TO SEEK CARE BEFORE YOUR APPOINTMENT 1. Excess swelling or increased numbness not made better by elevating the hand and moving the fingers. 2. Uncontrolled pain. 3. A color change in your hand or fingers. 4. Worsening redness or drainage. 5. Fevers over 100.5 degrees F or 38.1 degrees C. 6. Any symptoms that bring concern to you. Referrals: NONE,PCP [Primary Care Provider] -
[2019-05-24] MEDS: Piperacillin/Tazobactam 3.375 GM in 0.9 % Sodium Chloride Mini Bag 100 ML IVPB SCH ×4 (00:09→23:34)
[2019-05-24] MEDS: Acetaminophen 325 MG TABLET PO PRN (00:17)
[2019-05-24] MEDS: Levothyroxine 25 MCG TABLET PO SCH (05:09)
[2019-05-24 05:25] LABS: Basophils # 0.1 K/mcL (0.0-0.2); Basophils % 0.8 %; Eosinophils # 0.5 K/mcL (0.0-0.6); Eosinophils % 7.7 %; Hematocrit 40.8 % (37.5-50.1); Hemoglobin 13.1 g/dL (12.9-16.9); Immature Granulocytes % 0.2 % (0-4); Lymphocytes % 32.4 %; Mean Corpuscular HGB Conc 32.1 g/dL (31.6-35.5); Mean Corpuscular Hemoglobin 28.4 pg (28.0-33.3); Mean Corpuscular Volume 88.3 fL (83.0-100.0); Monocytes # 0.7 K/mcL (0.0-1.3); Monocytes % 11.6 %; Platelet Count 312 K/mcL (140-400); Red Blood Count 4.62 M/mcL (4.19-5.50); Red Cell Distribution Width 13.1 % (11.5-14.5); Segmented Neutrophils % 47.3 %; White Blood Count 6.2 K/mcL (4.3-11.1)
[2019-05-24 05:46] LABS: BUN/Creatinine Ratio 9 (6-26); Blood Urea Nitrogen 11 mg/dL (6-20); Calcium 9.4 mg/dL (8.6-10.3); Carbon Dioxide 29 mEq/L (23-29); Chloride 102 mEq/L (98-107); Glucose 93 mg/dL (70-105); Osmolality,Calculated 287 (280-300); Sodium 139 mEq/L (136-145); eGFR For African Americans > 60 (> 60); eGFR For Non-African Americans > 60 (> 60)
--- NOTE | 2019-05-24 07:17 | Orthopedics Progress Note ---
Date of Encounter: 05/24/19 Time of Encounter: 07:16 - Assessment and Plan (1) Hand abscess Current Visit: Yes Status: Acute Subjective Principal diagnosis: Left hand infection Interval history: S: Patient is seen today and has no complaints. O: Afebrile and vital signs are stable Dressing taken down. Wounds healing well. Mild to moderate swelling of the hand as expected No cellulitis Neurovascularly intact Cultures showing no growth at this time A: Post left hand I&D P: At this point the patient is orthopedically stable for discharge on an oral antibiotic. I did discuss local wound care with daily dressing changes and soapy soaks. Follow-up with me in the office in 1 week for clinical reevaluation Objective Vital signs: Vital Signs Temp Pulse Resp BP Pulse Ox 05/24/19 05:27 97.7 F 64 20 135/81 95 05/24/19 00:44 98.0 F 98 20 135/89 98 05/23/19 20:04 20 98 05/23/19 18:52 97.8 F 63 20 104/62 97 05/23/19 16:36 97.9 F 66 18 111/68 98 05/23/19 12:04 98.4 F 52 15 102/63 96 05/23/19 11:06 16 96 05/23/19 07:18 97.8 F 61 15 116/69 95 Intake and Output 05/23/19 05/23/19 05/24/19 15:59 23:59 07:59 Intake Total 1089 800 / 800 Balance 1089 580 2009 800 / 800 Intake: IV Fluids 350 / 550 100 / 550 350 / 350 Zosyn 3.375 GM In 0.9 % Sodium 100 / 300 100 / 300 100 / 100 Chloride (Mini-Bag +) 100 ML @ 25 mls/hr IVPB Q8HR [facility] Rx#: [id number] Vancocin 1,250 MG In 0.9 % 250 / 250 250 / 250 Sodium Chloride 250 ML @ 167 mls/hr IVPB Q12H [facility] Rx#: [id number] Oral 740 / 1460 480 / 1460 450 / 450 Other: Meal Breakfast Dinner Percent of Meal Consumed 100% 100% # Voids 2 1 Weight 87.3 kg Patient Weight 05/24/19 23:59 Weight 87.3 kg - Labs CBC & BMP: 05/24/19 05:04 05/24/19 05:04 Labs: Abnormal lab results ESR 11 mm/hr (0-10) H 05/19/19 16:54 Carbon Dioxide 30 mEq/L (23-29) H 05/19/19 16:43 Glucose 111 mg/dL (70-105) H 05/21/19 09:11 TSH 6.967 mcIU/mL (0.340-5.600) H 05/20/19 09:46 Vancomycin Trough 12 mcg/mL (5-10) H 05/22/19 20:24 Consult Discharge Plan - Plan Additional Instructions: DISCHARGE INSTRUCTIONS Dr. Barker DISCHARGE DIAGNOSIS/PROCEDURE I&D of the left hand ACTIVITY: Avoid aggressive activities with arm in which you were operated. Okay to move your fingers which will be good exercise. WOUND CARE: Change the dressing daily, clean wounds with warm soapy water, rinse clean and rewrap. MEDICATIONS: Oral antibiotic as per the hospitalist's instructions FOLLOW-UP Follow-up with Dr. Barker or Anamaria Faith PA-C at the office 1 week from the surgery date for a post operative evaluation. Call the office at [phone] to schedule or confirm your appointment. WHEN TO CALL THE DOCTOR OR WHEN TO SEEK CARE BEFORE YOUR APPOINTMENT 1. Excess swelling or increased numbness not made better by elevating the hand and moving the fingers. 2. Uncontrolled pain. 3. A color change in your hand or fingers. 4. Worsening redness or drainage. 5. Fevers over 100.5 degrees F or 38.1 degrees C. 6. Any symptoms that bring concern to you. Referrals: NONE,PCP [Primary Care Provider] -
[2019-05-24] MEDS: Tiotropium 18 MCG inhalation IH SCH (07:47)
[2019-05-24] MEDS: Budesonide/Formoterol 80/4.5 1 PUFF INH IH SCH ×2 (07:47→21:56)
--- NOTE | 2019-05-24 08:18 | Internal Med Progress Note ---
<Sangita Sullivan - Last Filed: 05/24/19 13:16> Hospitalist Progress Note - Encounter Date of Encounter: 05/24/19 - Exam Vitals: Temp Pulse Resp BP Pulse Ox 97.6 F 60 15 107/61 96 05/24/19 11:50 05/24/19 11:50 05/24/19 11:50 05/24/19 11:50 05/24/19 11:50 - Assessment and Plan (1) Hand abscess Current Visit: Yes Status: Acute - Time Spent with Patient Total time spent is greater than 50% in coordination of care (as documented) at patient's floor/unit and/or counseling patient: Internal Medicine: Result - Labs CBC & Chem 7: 05/24/19 05:04 05/24/19 05:04 Labs: Short CBC 05/24/19 Range/Units 05:04 WBC 6.2 (4.3-11.1) K/mcL Hgb 13.1 (12.9-16.9) g/dL Hct 40.8 (37.5-50.1) % Plt Count 312 (140-400) K/mcL Neutrophils # 3.0 (1.6-8.9) K/mcL BMP 05/24/19 05:04 Sodium 139 Potassium 4.0 Chloride 102 Carbon Dioxide 29 BUN 11 Creatinine 1.25 Glucose 93 Calcium 9.4 - ABG Interpretation ABG results: PT/INR, D-dimer PT 10.5 Seconds (9.4-12.1) 05/20/19 06:16 - Impressions Impressions Hand X-Ray 05/19/19 16:50 IMPRESSION: Soft tissue swelling of the hand. No acute osseous abnormality. No radiopaque foreign body. D/ / 05/19/2019 16:51:34 Jayla Mancia MD / [facility] Interpreting Provider: Jayla Mancia MD Consult Discharge Plan - Plan Additional Instructions: DISCHARGE INSTRUCTIONS Dr. Barker DISCHARGE DIAGNOSIS/PROCEDURE I&D of the left hand ACTIVITY: Avoid aggressive activities with arm in which you were operated. Okay to move your fingers which will be good exercise. WOUND CARE: Change the dressing daily, clean wounds with warm soapy water, rinse clean and rewrap. MEDICATIONS: Oral antibiotic as per the hospitalist's instructions FOLLOW-UP Follow-up with Dr. Barker or Anamaria Faith PA-C at the office 1 week from the surgery date for a post operative evaluation. Call the office at [phone] to schedule or confirm your appointment. WHEN TO CALL THE DOCTOR OR WHEN TO SEEK CARE BEFORE YOUR APPOINTMENT 1. Excess swelling or increased numbness not made better by elevating the hand and moving the fingers. 2. Uncontrolled pain. 3. A color change in your hand or fingers. 4. Worsening redness or drainage. 5. Fevers over 100.5 degrees F or 38.1 degrees C. 6. Any symptoms that bring concern to you. Referrals: NONE,PCP [Primary Care Provider] - - Attending Attestation I examined this patient and my medical decision-making was reviewed with the Resident Physician Dr Muñoz. I agree with the documented findings, disposition and treatment plan as described except to the extent set forth below. Mr Welch is admitted with hand abscess requiring surgical intervention awake, pain since dressing change yesterday, tolerable, no fevers or chills. gen- alert, awake,appears stated age cv- reg rate and rhythm, normal s1,s2, cap refill left hand intact, warm ext lungs- ctabl, skin- left hand dressing intact, clean and dry neuro- AAOx3 Hand Abscess and Cellulitis, left s/p I&D w Wound Debridement -cont Vanc + Zosyn while await cxs to result, [facility] lab has been contacted daily awaiting results to finalize, they verbally reported concern for possible yeast on cx but could not give definitive result, our team updated Dr Barker, we have reached out to ID who recommended awaiting cx finalization, will need to keep inpt awaiting final result, given this was verbal possible report from micro and he is clinically stable on current abx, will hold anti fungals at this time, though if he decomps in any way will empirically start them HTN- cont home hctz, fu with pcp on dc further dx and plan as noted by resident <Chucho Muñoz - Last Filed: 05/24/19 18:42> Hospitalist Progress Note - Encounter Date of Encounter: 05/24/19 Time of Encounter: 09:00 - Subjective Interval History: the patient is seen and examined at bedside. He says that overall he is feeling well, however his hand has been hurting more since it was missed with this morning. He says that there is a throbbing pain which typically follows the cleaning which is done by orthopedic surgery in the mornings, however it otherwise typically feels well. He says that he has had no fever, chills, sweats overnight. He has no nausea or vomiting. He is able to use his hand without much concern. - Exam Vitals: Temp Pulse Resp BP Pulse Ox 97.8 F 56 16 112/69 97 05/24/19 07:22 05/24/19 07:22 05/24/19 07:47 05/24/19 07:05/24/19 07:47 Exam: Gen: Vitals noted. No acute distress. Eyes: anicteric sclerae, moist conjunctivae; no lid-lag; Pupils equal and reactive to light HENT: Atraumatic; oropharynx clear with moist mucous membranes and no mucosal ulcerations; normal hard and soft palate Neck: Trachea midline; supple, no thyromegaly or lymphadenopathy Cardiac: RRR, no murmur, +S1/S2 Pulmonary: CTA bilaterally, no wheezes, rales or rhonchi, equal chest expansion Abdomen: soft, nontender, no guarding. No masses or hepatosplenomegaly MSK: ROM intact, no joint swelling noted. L hand dressing in place, neuro vasculature is intact for hand Extremities: no BLE edema, nontender calf, no cyanosis or clubbing Skin: Normal temperature, turgor and texture; no rash, ulcers or subcutaneous nodules Neuro: moves all extremities, no focal deficits. Psych: Appropriate mood and behavior. A&Ox3 - Assessment and Plan (1) Hand abscess Current Visit: Yes Status: Acute Assessment and Plan: hand abscess and cellulitis, left Status post I&D with wound debridement with with drain now removed patient is on vancomycin and Zosyn day 5 Currently awaiting culture results, however there was a verbal report given from microbiology that there may be yeast growing in the intraoperative samplewhich has not yet finalized because of this, we do not feel comfortable discharging the patient without antifungal medication He does appear to be getting better clinically, however he also has been having daily wound cleanings by orthopedic surgery We will start the patient on fluconazole 400 mg daily Continue broad-spectrum antibiotics at this time pending culture DVT Prophylaxis: SCDs - Time Spent with Patient Total time spent is greater than 50% in coordination of care (as documented) at patient's floor/unit and/or counseling patient: Internal Medicine: Result - Labs CBC & Chem 7: 05/24/19 05:04 05/24/19 05:04 Labs: Short CBC 05/24/19 Range/Units 05:04 WBC 6.2 (4.3-11.1) K/mcL Hgb 13.1 (12.9-16.9) g/dL Hct 40.8 (37.5-50.1) % Plt Count 312 (140-400) K/mcL Neutrophils # 3.0 (1.6-8.9) K/mcL BMP 05/24/19 05:04 Sodium 139 Potassium 4.0 Chloride 102 Carbon Dioxide 29 BUN 11 Creatinine 1.25 Glucose 93 Calcium 9.4 - ABG Interpretation ABG results: PT/INR, D-dimer PT 10.5 Seconds (9.4-12.1) 05/20/19 06:16
[2019-05-24] MEDS: hydroCHLOROthiazide 25 MG TABLET PO SCH (08:35)
[2019-05-24] MEDS ORDERED: Fluconazole 100 MG TABLET PO SCH (18:45)
[2019-05-25] MEDS: Levothyroxine 25 MCG TABLET PO SCH (05:36)
--- NOTE | 2019-05-25 07:12 | Orthopedics Progress Note ---
Date of Encounter: 05/25/19 Time of Encounter: 07:10 - Assessment and Plan (1) Hand abscess Current Visit: Yes Status: Acute Subjective Principal diagnosis: Left hand infection Interval history: S: Patient is seen today and has no complaints. O: Afebrile and vital signs are stable Dressing taken down. Wounds healing well. Mild to moderate swelling of the hand as expected No cellulitis Neurovascularly intact Cultures showing no growth at this time Notified by the hospitalist of yeast growing, however A: Post left hand I&D P: At this point the patient is orthopedically stable for discharge. Antimicrobial spur the hospitalist. I did discuss local wound care with daily dressing changes and soapy soaks. Follow-up with me in the office in 1 week for clinical reevaluation Objective Vital signs: Vital Signs Temp Pulse Resp BP Pulse Ox 05/25/19 06:38 97.6 F 49 16 135/91 97 05/25/19 02:25 98.5 F 65 16 130/83 96 05/24/19 22:16 98.4 F 05/24/19 22:15 99.4 F 62 17 115/67 95 05/24/19 21:59 16 96 05/24/19 18:41 98.4 F 72 16 117/66 98 05/24/19 15:05 97.6 F 54 15 124/77 97 05/24/19 11:50 97.6 F 60 15 107/61 96 05/24/19 07:47 16 97 05/24/19 07:22 97.8 F 56 16 112/69 97 Intake and Output 05/24/19 05/24/19 05/25/19 15:59 23:59 07:59 Intake Total 420 / 2200 980 / 2200 640 / 640 Balance 420 / 2200 980 / 2200 640 / 640 Intake: IV Fluids 100 / 800 350 / 800 100 / 100 Zosyn 3.375 GM In 0.9 % Sodium 100 / 300 100 / 300 100 / 100 Chloride (Mini-Bag +) 100 ML @ 25 mls/hr IVPB Q8HR [facility] Rx#: [id number] Vancocin 1,000 MG In 0.9 % 250 / 250 Sodium Chloride 250 ML @ 167 mls/hr IVPB Q12H [facility] Rx#: [id number] Oral 320 / 1400 630 / 1400 540 / 540 Other: Meal Lunch Percent of Meal Consumed 100% # Voids 1 1 # Bowel Movements 1 Weight 86.09 kg Patient Weight 05/25/19 23:59 Weight 86.09 kg - Labs CBC & BMP: 05/24/19 05:04 05/24/19 05:04 Labs: Abnormal lab results ESR 11 mm/hr (0-10) H 05/19/19 16:54 Carbon Dioxide 30 mEq/L (23-29) H 05/19/19 16:43 Glucose 111 mg/dL (70-105) H 05/21/19 09:11 TSH 6.967 mcIU/mL (0.340-5.600) H 05/20/19 09:46 Vancomycin Trough 17 mcg/mL (5-10) H 05/24/19 20:18 Consult Discharge Plan - Plan Additional Instructions: DISCHARGE INSTRUCTIONS Dr. Barker DISCHARGE DIAGNOSIS/PROCEDURE I&D of the left hand ACTIVITY: Avoid aggressive activities with arm in which you were operated. Okay to move your fingers which will be good exercise. WOUND CARE: Change the dressing daily, clean wounds with warm soapy water, rinse clean and rewrap. MEDICATIONS: Oral antibiotic as per the hospitalist's instructions FOLLOW-UP Follow-up with Dr. Barker or Anamaria Faith PA-C at the office 1 week from the surgery date for a post operative evaluation. Call the office at [phone] to schedule or confirm your appointment. WHEN TO CALL THE DOCTOR OR WHEN TO SEEK CARE BEFORE YOUR APPOINTMENT 1. Excess swelling or increased numbness not made better by elevating the hand and moving the fingers. 2. Uncontrolled pain. 3. A color change in your hand or fingers. 4. Worsening redness or drainage. 5. Fevers over 100.5 degrees F or 38.1 degrees C. 6. Any symptoms that bring concern to you. Referrals: NONE,PCP [Primary Care Provider] -
[2019-05-25] MEDS: hydroCHLOROthiazide 25 MG TABLET PO SCH (08:36)
--- NOTE | 2019-05-25 08:45 | Discharge Summary ---
<Sangita Sullivan - Last Filed: 05/25/19 12:10> Orders not resulted at time of discharge: Pending orders 05/20/19 17:11 Culture,Anaerobic [RM] Routine Culture,Wound,with Gram Stain [RM] Routine Date of Encounter: 05/25/19 - Discharge Diagnosis (1) Hand abscess Status: Acute Hospital course: Mr. Welch is a 48 year old male - Time Spent with Patient Total time spent providing and/or coordinating discharge services: - Discharge Medications Prescriptions: New Sulfamethoxazole/Trimeth DS [Bactrim DS] 1 each PO BID 8 Days #16 tablet Clindamycin HCl 600 mg PO TID 8 Days #48 capsule Lactobacillus [Culturelle] 1 each PO BID #14 cap.sprink HYDROcodone/Acet 5/325 mg [Graford 5-325 mg] 1 tab PO Q6H PRN 3 Days #12 tab PRN Reason: Post surgical pain Continued Tiotropium [Spiriva] 18 mcg IH 0700 Albuterol Sulfate [Proventil Inhaler] 2 puff IH Q4HR PRN PRN Reason: SOB/WHEEZING Levothyroxine [Synthroid] 25 mcg PO 0630 hydroCHLOROthiazide [Hydrochlorothiazide] 25 mg PO DAILY Mometasone/Formoterol [Dulera 100 Mcg/5 Mcg Inhaler] 2 inh IH BID Home Medications: Albuterol Sulfate [Proventil Inhaler] 2 puff IH Q4HR PRN 05/19/19 [History] Levothyroxine [Synthroid] 25 mcg PO 0630 05/19/19 [History] Mometasone/Formoterol [Dulera 100 Mcg/5 Mcg Inhaler] 2 inh IH BID 05/19/19 [History] Tiotropium [Spiriva] 18 mcg IH 0700 05/19/19 [History] hydroCHLOROthiazide [Hydrochlorothiazide] 25 mg PO DAILY 05/19/19 [History] Clindamycin HCl 600 mg PO TID 8 Days #48 capsule 05/25/19 [Rx] HYDROcodone/Acet 5/325 mg [Graford 5-325 mg] 1 tab PO Q6H PRN 3 Days #12 tab 05/25/19 [Rx] Lactobacillus [Culturelle] 1 each PO BID #14 cap.sprink 05/25/19 [Rx] Sulfamethoxazole/Trimeth DS [Bactrim DS] 1 each PO BID 8 Days #16 tablet 05/25/19 [Rx] Allergies/Adverse Reactions: Allergy/AdvReac Type Severity Reaction Status Date / Time steroids Allergy Rash Uncoded 09/06/18 17:27 Date of admission: 05/20/19 14:53 Primary care physician: PCP NONE Consults: 05/19/19 18:42 Consult to Orthopedic Surgery [CONS] Stat Consulting Provider: [facility] Reason for Consult: hand swelling, infection Time Notified: 18:42 Call Completed: Yes - Constitutional Vitals: Temp Pulse Resp BP Pulse Ox 98.2 F 68 18 125/75 94 05/25/19 10:28 05/25/19 10:28 05/25/19 10:28 05/25/19 10:28 05/25/19 10:28 - Patient Status Disposition: Home, Self-Care Condition: Fair - Discharge Instructions Follow Up With: Julita Chaudhry PAC [Physician Lockstitch Pocket Setter] - 05/28/19 3:00 pm Moose Barker MD [Partnered Physician] - (pt will be seeing julita chaudhry for f/u. ) Additional Instructions: DISCHARGE INSTRUCTIONS Dr. Barker DISCHARGE DIAGNOSIS/PROCEDURE I&D of the left hand ACTIVITY: Avoid aggressive activities with arm in which you were operated. Okay to move your fingers which will be good exercise. WOUND CARE: Change the dressing daily, clean wounds with warm soapy water, rinse clean and rewrap. MEDICATIONS: Oral antibiotic as per the hospitalist's instructions -Clindamycin 600mg Three times a day for 8 days, Stop date 06/02 -Bactrim DS 1 tab Twice a day for 8 days, Stop date 06/02 -Probiotic twice a day until prescription is out you require a lab draw to check your BMP in one week. This can be arranged through your PCP (to check kidney function on antibiotic) FOLLOW-UP Follow-up with Dr. Barker or Julita Chaudhry PA-C at the office 1 week from the surgery date for a post operative evaluation. Call the office at [phone] to schedule or confirm your appointment. WHEN TO CALL THE DOCTOR OR WHEN TO SEEK CARE BEFORE YOUR APPOINTMENT 1. Excess swelling or increased numbness not made better by elevating the hand and moving the fingers. 2. Uncontrolled pain. 3. A color change in your hand or fingers. 4. Worsening redness or drainage. 5. Fevers over 100.5 degrees F or 38.1 degrees C. 6. Any symptoms that bring concern to you. - Attending Attestation I examined this patient and my medical decision-making was reviewed with the Resident Physician Dr Muñoz. I agree with the documented findings, disposition and treatment plan as described except to the extent set forth below. Mr Welch is admitted with hand abscess requiring surgical intervention. With cultures now resulting he is medically stable for dc to home. Barrier to discharge was intra op wound cx results awake, pain well controlled, no fevers, chills, n/v. dc plan discussed and all questions answered gen- alert, awake,appears stated age cv- reg rate and rhythm, cap refill left hand intact, warm ext lungs- ctabl skin- left hand dressing intact, clean and dry neuro- AAOx3 Hand Abscess and Cellulitis, left s/p I&D w Wound Debridement -have finally received gram stain results, d/w pharmacy, will dc on oral clinda + bactrim, outpt bmp in one week, fu with Dr Barker for final cx results, probiotic on dc -wound care as per ortho HTN- cont home hctz, fu with pcp on dc further dx and plan as noted by resident time spent on dc 45 min <Chucho Muñoz - Last Filed: 05/25/19 15:02> - NOTES TO OUTPATIENT PROVIDER Notes to Outpatient Provider: admitted for left hand abscess status post puncture wound, underwent surgical I&D and debridement. Discharged on clindamycin and Bactrim, will need follow-up with orthopedic for finalization of cultures Orders not resulted at time of discharge: Pending orders 05/20/19 17:11 Culture,Anaerobic [RM] Routine Culture,Wound,with Gram Stain [RM] Routine Date of Encounter: 05/25/19 Time of Encounter: 08:45 - Discharge Diagnosis (1) Hand abscess Priority: Primary Status: Acute Hospital course: Dear Doctors, I recently had the opportunity to care for this patient during their recent hospital stay at [facility]. Mr. Welch is a 48-year-old gentleman with history ofhypertension, hypothyroidism, asthma who presented to the hospital due to abscess and cellulitis of the left hand following puncture wound with a screwdriver. 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 Over the course of his hospitalization, the patient was seen and evaluated by orthopedic surgery who did take the patient for operative I and D and debridement of his wound. He then underwent daily washouts and was maintained on vancomycin and Zosyn pending culture finalization. There was quite a delay in reporting of cultures, however over the phone we did receive a verbal report initially from the microbiology lab that reported possible yeast in the culture sample. Eventually, it was reported that there was no yeast in the sample, however the patient does have significant number of growing organism from the surgical culture sample. At this time, her orthopedic surgery, he is stable for discharge with outpatient follow-up and wound care. He will be discharged with oral antibiotics to be completed for a total of 14 day course. We will discharge him with by mouth clindamycin and Bactrim with orthopedic surgery to follow up on final culture results in one week. The patient understands and agrees to this plan. Dx: left hand abscess and cellulitis Follow up: follow-up with Dr. Chen in 1 week Tests pending: culture results are still pending Med changes: -Clindamycin 600mg Three times a day for 8 days, Stop date 06/02 -Bactrim DS 1 tab Twice a day for 8 days, Stop date 06/02 -Probiotic twice a day until prescription is out Mental status: awake, fully oriented Code status: Full code Time spent on discharge: 35 minutes It has been my pleasure participating in this patient's care. Please contact me with any questions or concerns regarding their hospital stay. Sincerely, Chucho Muñoz, DO Discharge discussed with: patient, family, nurse, social work, case management, technical support consultant - Time Spent with Patient Total time spent providing and/or coordinating discharge services: Date of admission: 05/20/19 14:53 Primary care physician: PCP NONE Consults: 05/19/19 18:42 Consult to Orthopedic Surgery [CONS] Stat Consulting Provider: [facility] Reason for Consult: hand swelling, infection Time Notified: 18:42 Call Completed: Yes Discharging clinician: Chucho Muñoz Anticipated date of discharge: 09/24/19 - Constitutional Vitals: Temp Pulse Resp BP Pulse Ox 97.6 F 49 16 135/91 97 05/25/19 06:38 05/25/19 06:38 05/25/19 06:38 05/25/19 06:38 05/25/19 06:38 General appearance: Present: cooperative, A&O X 3, pleasant, no acute distress, answers questions appropriately Exam: Gen: Vitals noted. No acute distress. Eyes: anicteric sclerae, moist conjunctivae; no lid-lag; Pupils equal and reactive to light HENT: Atraumatic; oropharynx clear with moist mucous membranes and no mucosal ulcerations; normal hard and soft palate Neck: Trachea midline; supple, no thyromegaly or lymphadenopathy Cardiac: RRR, no murmur, +S1/S2 Pulmonary: CTA bilaterally, no wheezes, rales or rhonchi, equal chest expansion Abdomen: soft, nontender, no guarding. No masses or hepatosplenomegaly MSK: ROM intact, no joint swelling noted. L hand dressing in place, neuro vasculature is intact for hand Extremities: no BLE edema, nontender calf, no cyanosis or clubbing Skin: Normal temperature, turgor and texture; no rash, ulcers or subcutaneous nodules Neuro: moves all extremities, no focal deficits. Psych: Appropriate mood and behavior. A&Ox3 - Patient Status Functional capacity at discharge: independent ambulation Overall status at discharge: patient is back to baseline - Diet and Activity Activity: increase activity as tolerated Diet: advance to your usual diet
[2019-05-25 10:29] VITALS: BP 125/75
[2019-05-25] MEDS: Budesonide/Formoterol 80/4.5 1 PUFF INH IH SCH (10:55)
[2019-05-25] MEDS: Tiotropium 18 MCG inhalation IH SCH (10:56)
[2019-05-25] MEDS ORDERED: Aminoglycoside Consult 1 EACH MC ONE (16:29)
== END 2019-05-25 16:30 | disposition home or self-care (01) | DRG 364 ==
LOC: 3NENU 16:11 → EMEROOARM 16:11 → SUATTDRO 19:18 → 3NENU 20:17
PROVIDERS: ADMIT Internal Medicine; ATTEND Internal Medicine